=== PATIENT | female | born 1945 | race Caucasian/White ===

== ENCOUNTER → 2019-05-16 15:09 | Outpatient (BNVA) | payer MEDICARE, MEDICAID, SELFPAY | PROVIDERS: Family Provider Nurse Practitioner; PCP Nurse Practitioner; Visit Provider Nurse Practitioner | DX: E03.8 Other specified hypothyroidism (principal) | CPT/HCPCS: 80053; 84443 ==

== ENCOUNTER → 2019-09-17 14:35 | Outpatient (BNVA) | payer MEDICARE, MEDICAID, SELFPAY | PROVIDERS: Family Provider Nurse Practitioner; PCP Nurse Practitioner; Visit Provider Nurse Practitioner | DX: I10 Essential (primary) hypertension (principal); E55.9 Vitamin D deficiency, unspecified; F41.9 Anxiety disorder, unspecified; E03.8 Other specified hypothyroidism; J43.9 Emphysema, unspecified; N39.0 Urinary tract infection, site not specified; M79.10 Myalgia, unspecified site; E61.1 Iron deficiency; E78.5 Hyperlipidemia, unspecified | CPT/HCPCS: 80053; 80061; 81000; 83540; 84443 ==

== ENCOUNTER → 2019-10-01 14:42 | Outpatient (BNVA) | payer MEDICARE, MEDICAID, SELFPAY | PROVIDERS: Family Provider Nurse Practitioner; PCP Nurse Practitioner; Visit Provider Nurse Practitioner | DX: I10 Essential (primary) hypertension (principal) | CPT/HCPCS: 80053; 81000; 81003; 87077; 87086; 87186 ==

== ENCOUNTER → 2019-12-31 14:33 | Outpatient (BNVA) | payer MEDICARE, MEDICAID, SELFPAY | PROVIDERS: Family Provider Nurse Practitioner; PCP Nurse Practitioner; Visit Provider Nurse Practitioner | DX: M54.9 Dorsalgia, unspecified (principal); E03.8 Other specified hypothyroidism; M25.559 Pain in unspecified hip; I10 Essential (primary) hypertension; M79.10 Myalgia, unspecified site; E55.9 Vitamin D deficiency, unspecified; F41.9 Anxiety disorder, unspecified; J43.9 Emphysema, unspecified; R39.9 Unspecified symptoms and signs involving the genitourinary system | CPT/HCPCS: 80053; 81003; 84443; 87077; 87086; 87184; 87186 ==

== ENCOUNTER → 2020-01-01 14:50 | Outpatient (BNVA) | payer MEDICARE, MEDICAID, SELFPAY | PROVIDERS: Family Provider Nurse Practitioner; PCP Nurse Practitioner; Visit Provider Nurse Practitioner | DX: M54.9 Dorsalgia, unspecified (principal); M25.559 Pain in unspecified hip | CPT/HCPCS: 72040; 72072; 72100; 73522 ==

== ENCOUNTER → 2020-03-25 15:09 | Outpatient (BNVA) | payer MEDICARE, MEDICAID, SELFPAY | PROVIDERS: Family Provider Nurse Practitioner; PCP Nurse Practitioner; Visit Provider Family Medicine | DX: I10 Essential (primary) hypertension (principal); E03.8 Other specified hypothyroidism; E78.5 Hyperlipidemia, unspecified; M79.10 Myalgia, unspecified site; J43.9 Emphysema, unspecified; F41.9 Anxiety disorder, unspecified; F32.9 Major depressive disorder, single episode, unspecified; Z72.0 Tobacco use | CPT/HCPCS: 80053; 80061; 84443; 85025 ==

== ENCOUNTER 2020-05-26 10:38 | Outpatient (CLI) | payer MEDICARE, MEDICAID, SELFPAY ==
--- NOTE | 2020-05-26 11:00 | CT_ITS ---
WS: [id number] CT LUMBAR SPINE TECHNIQUE: Noncontrast CT of the lumbar spine with coronal and sagittal reformatted images. CLINICAL INFORMATION: sciatica DLP: 1810.[address] scans at [facility] use at least one of these dose optimization techniques: automat ed exposure control; mA and/or kV adjustment per patient size (includes targeted exams where dose is matched to clinical indication); or iterative reconstruction. FINDINGS: Lumbar scoliosis convex left. Grade 1 anterolisthesis L4 on L5 measuring 5 mm. Grade 1 anterolisthesi s L5 on S1 measuring 6 mm. Disc space narrowing worse at T12-L1, L1-L2, L2-L3, L3-L4, and L5-S1. L1-L2: Disc osteophyte complex with endplate ridging. Impingement on the subarticular recess bilatera lly and traversing L2 nerve roots. Moderate facet arthropathy. Mild right and no significant left for aminal narrowing. L2-L3: Disc osteophyte complex with endplate ridging. Mild central canal stenosis. Impingement wing sing L3 nerve roots bilaterally. Moderate facet arthropathy. Mild right and no significant left myriam inal narrowing. L3-L4: Disc osteophyte complex with endplate ridging. Moderate central canal stenosis. Moderate facet arthropathy. Mild right and no significant left foraminal narrowing. L4-L5: Grade 1 anterolisthesis L4 on L5. Severe central canal stenosis due to disc bulging with facet arthropathy ligament flavum hypertrophy. Impingement traversing L5 nerve roots bilaterally. Advanced facet arthropathy. Mild bilateral foraminal narrowing right greater than left. L5-S1: Mild disc bulging and osteophytic ridging. Advanced facet arthropathy. Moderate left foraminal narrowing. Advanced facet arthropathy. Visualized pelvic bony structures: Normal. Paravertebral soft tissues: Normal. CT/CT lumbar spine wo con* [id number] IMPRESSION: 1. Lumbar scoliosis convex left. 2. Grade 1 anterolisthesis L4 on L5 and L5 on S1. Vacuum disc phenomenon throu ghout the lumbar spine described above. 3. Severe central canal stenosis L4-5. 4. Mild to moderate central canal stenosis L2-3, L3-4, and L5-S1. 5. Mild to moderate bony foraminal narrowing worse at right L1-2, right L2-3, and left L5-S1. 6. Advanced facet arthropathy L4-L5 and L5-S1.
== END 2020-05-26 10:39 | disposition home or self-care (01) ==
LOC: RADWPI 10:45
PROVIDERS: PCP Family Medicine; Visit Provider Family Medicine
DX: M54.40 Lumbago with sciatica, unspecified side (principal); M47.816 Spondylosis without myelopathy or radiculopathy, lumbar region; M47.817 Spondylosis without myelopathy or radiculopathy, lumbosacral region; M48.061 Spinal stenosis, lumbar region without neurogenic claudication; M48.07 Spinal stenosis, lumbosacral region
CPT/HCPCS: 72131

== ENCOUNTER → 2020-07-07 15:03 | Outpatient (BNVA) | payer MEDICARE, MEDICAID, SELFPAY | PROVIDERS: PCP Family Medicine; Visit Provider Orthopaedic Surgery | DX: M54.5 Low back pain (principal) | CPT/HCPCS: 72110 ==

== ENCOUNTER → 2020-07-13 15:39 | Outpatient (BNVA) | payer MEDICARE, MEDICAID, SELFPAY | PROVIDERS: PCP Family Medicine; Visit Provider Family Medicine | DX: E03.8 Other specified hypothyroidism (principal); E55.9 Vitamin D deficiency, unspecified; E78.5 Hyperlipidemia, unspecified; I10 Essential (primary) hypertension; E61.1 Iron deficiency; F41.9 Anxiety disorder, unspecified; F32.9 Major depressive disorder, single episode, unspecified; Z68.30 Body mass index [BMI] 30.0-30.9, adult | CPT/HCPCS: 80053; 80061; 82306; 83540; 84443; 85025 ==

== ENCOUNTER 2020-07-28 08:57 | Outpatient (CLI) | payer MEDICARE, MEDICAID, SELFPAY ==
--- NOTE | 2020-07-28 09:18 | CT_ITS ---
WS: [id number] Exam: CT lumbar spine w con [id number] Date/Time of Exam: 07/28/2020 10:35 AM Reason For Exam: M54.5 - Low back pain DLP: 1841.[address] scans at [facility] use at least one of these dose optimization techniques: automat ed exposure control; mA and/or kV adjustment per patient size (includes targeted exams where dose is matched to clinical indication); or iterative reconstruction. The spine is evaluated in the axial plane with sagittal and coronal reformatted images. Intrathecal c ontrast was administered for the exam. The spinal canal is developmentally large. There is moderately severe central spinal canal stenosis a t the L4-5 disc level. Stenosis is secondary to marked facet hypertrophy and ligamentous thickening. There is also moderate spinal canal stenosis at the L2-3 and L3-4 disc levels. There is mild central spinal canal stenosis at the L1-2 disc level. The L5-S1 disc level is widely patent. No foraminal jayda nosis is seen. No intradural or intramedullary abnormalities were demonstrated. Advanced degenerative disc changes at all levels except L4-5. Grade 1 degenerative anterolisthesis of L5 on S1. Mild degen erative anterolisthesis of L4 on L5. Marked facet arthropathy at all levels. The conus ends at normal level. Paraspinal and retroperitoneal soft tissue structures are unremarkable. Probable small cyst i n the left kidney. CT/CT lumbar spine w con [id number] IMPRESSION: 1. Moderately severe central spinal canal stenosis at L4-5. 2. Moderate spinal canal stenosis at L2-3 and L3-4. Mild canal stenosis at L1-2 . 3. Grade 1 degenerative spondylolisthesis of L5 on S1. Mild L4-5 spondylolisthe sis. 4. Advanced degenerative changes and scoliosis. Additional findings as above.
--- NOTE | 2020-07-28 09:18 | IR_ITS ---
WS: [id number] Exam: IR myelogram sp lumbar [id number] Date/Time of Exam: 07/28/2020 9:20 AM Reason For Exam: M43.16 - Spondylolisthesis, lumbar region Fluoroscopy time: 6.0 minutes The procedure and potential complications were explained to the patient in detail. Written consent wa s obtained. The low back was prepped and draped in a sterile fashion. The soft tissues were anestheti zed with several cc of 1% Xylocaine. A 22-gauge spinal needle was positioned in the subarachnoid spac e at the L4-5 disc level under fluoroscopic guidance. 20 cc of 240% Omnipaque were injected into the subarachnoid space under fluoroscopic visualization. The patient tolerated the injection procedure wi thout incident. There is levoscoliosis of the lumbar spine with moderately advanced degenerative change. There is gra de 1 degenerative spondylolisthesis of L5 on S1 with significant degeneration of the L5-S1 disc. Ther e is central spinal canal stenosis at the L1-2, L2-3 and L3-4 disc levels. There is significant spina l canal stenosis at the L4-5 disc level. There appears to be compression upon the right and left nerv e roots at the L4-5 disc level. No intramedullary or intradural filling defects were demonstrated. Mi ld degenerative anterolisthesis of L4 on L5. IR/IR myelogram sp lumbar [id number] IMPRESSION: 1. Central spinal canal stenosis at L1-2, L2-3, L3-4 and most marked at L4-5. 2. Grade 1 spondylolisthesis of L5 on S1 as noted above. Mild degenerative ante rolisthesis of L4 on L5. 3. Advanced degenerative changes and levoscoliosis. Marked facet arthropathy.
[2020-07-28] MEDS: iohexol 240 mg/mL 50 mL Btl INTRATHECA (10:26)
== END 2020-07-28 08:58 | disposition home or self-care (01) ==
LOC: RADWPI 09:04
PROVIDERS: PCP Family Medicine; Visit Provider Orthopaedic Surgery
DX: M43.16 Spondylolisthesis, lumbar region (principal); M48.061 Spinal stenosis, lumbar region without neurogenic claudication; M43.17 Spondylolisthesis, lumbosacral region; M47.816 Spondylosis without myelopathy or radiculopathy, lumbar region
CPT/HCPCS: 62304; 72120; 72132; Q9966

== ENCOUNTER → 2020-08-05 08:55 | Outpatient (BNVA) | payer MEDICARE, MEDICAID, SELFPAY | PROVIDERS: PCP Family Medicine; Referring Provider Orthopaedic Surgery; Visit Provider Anesthesiology Pain Medicine | DX: G89.29 Other chronic pain (principal); M54.40 Lumbago with sciatica, unspecified side; M43.16 Spondylolisthesis, lumbar region; M51.36 Other intervertebral disc degeneration, lumbar region; M48.062 Spinal stenosis, lumbar region with neurogenic claudication; F17.210 Nicotine dependence, cigarettes, uncomplicated | CPT/HCPCS: 99205 ==

== ENCOUNTER → 2020-08-12 14:10 | Outpatient (BNVA) | payer MEDICARE, MEDICAID, SELFPAY | PROVIDERS: PCP Family Medicine; Visit Provider Anesthesiology Pain Medicine | DX: M54.16 Radiculopathy, lumbar region (principal); M48.062 Spinal stenosis, lumbar region with neurogenic claudication; F17.210 Nicotine dependence, cigarettes, uncomplicated | CPT/HCPCS: 64483; 64484; J1100; J3490 ==

== ENCOUNTER → 2020-09-01 14:12 | Outpatient (BNVA) | payer MEDICARE, MEDICAID, SELFPAY | PROVIDERS: PCP Family Medicine; Visit Provider Anesthesiology Pain Medicine | DX: M54.16 Radiculopathy, lumbar region (principal); M48.062 Spinal stenosis, lumbar region with neurogenic claudication; F17.210 Nicotine dependence, cigarettes, uncomplicated | CPT/HCPCS: 64483; 64484; J1100; J3490 ==

== ENCOUNTER → 2020-09-17 13:24 | Outpatient (BNVA) | payer MEDICARE, MEDICAID, SELFPAY | PROVIDERS: PCP Family Medicine; Visit Provider Anesthesiology Pain Medicine | DX: G89.29 Other chronic pain (principal); M48.062 Spinal stenosis, lumbar region with neurogenic claudication; M54.41 Lumbago with sciatica, right side; M54.42 Lumbago with sciatica, left side; M43.16 Spondylolisthesis, lumbar region; M51.36 Other intervertebral disc degeneration, lumbar region; F17.210 Nicotine dependence, cigarettes, uncomplicated | CPT/HCPCS: 99214 ==

== ENCOUNTER → 2020-09-28 13:45 | Outpatient (BNVA) | payer MEDICARE, MEDICAID, SELFPAY | PROVIDERS: PCP Family Medicine; Visit Provider Anesthesiology Pain Medicine | DX: M47.816 Spondylosis without myelopathy or radiculopathy, lumbar region (principal); M48.062 Spinal stenosis, lumbar region with neurogenic claudication; F17.210 Nicotine dependence, cigarettes, uncomplicated | CPT/HCPCS: 64493; 64494; 64495; J3490 ==

== ENCOUNTER → 2020-10-12 09:21 | Outpatient (BNVA) | payer MEDICARE, MEDICAID, SELFPAY | PROVIDERS: PCP Family Medicine; Visit Provider Anesthesiology Pain Medicine | DX: G89.29 Other chronic pain (principal); M54.41 Lumbago with sciatica, right side; M54.42 Lumbago with sciatica, left side; M48.062 Spinal stenosis, lumbar region with neurogenic claudication; M43.16 Spondylolisthesis, lumbar region; M51.36 Other intervertebral disc degeneration, lumbar region; F17.210 Nicotine dependence, cigarettes, uncomplicated | CPT/HCPCS: 99214 ==

== ENCOUNTER → 2020-10-22 13:56 | Outpatient (BNVA) | payer MEDICARE, MEDICAID, SELFPAY | PROVIDERS: PCP Family Medicine; Visit Provider Anesthesiology Pain Medicine | DX: M47.816 Spondylosis without myelopathy or radiculopathy, lumbar region (principal); M48.062 Spinal stenosis, lumbar region with neurogenic claudication; M54.9 Dorsalgia, unspecified; F17.210 Nicotine dependence, cigarettes, uncomplicated | CPT/HCPCS: 64635; 64636; J1030 ==

== ENCOUNTER → 2020-11-04 13:05 | Outpatient (BNVA) | payer MEDICARE, MEDICAID, SELFPAY | PROVIDERS: PCP Family Medicine; Visit Provider Anesthesiology Pain Medicine | DX: M47.816 Spondylosis without myelopathy or radiculopathy, lumbar region (principal); M48.062 Spinal stenosis, lumbar region with neurogenic claudication; F17.210 Nicotine dependence, cigarettes, uncomplicated | CPT/HCPCS: 64635; 64636; J1030 ==

== ENCOUNTER → 2020-11-20 09:08 | Outpatient (BNVA) | payer MEDICARE, MEDICAID, SELFPAY | PROVIDERS: PCP Family Medicine; Visit Provider Anesthesiology Pain Medicine | DX: G89.29 Other chronic pain (principal); M54.41 Lumbago with sciatica, right side; M54.42 Lumbago with sciatica, left side; M48.062 Spinal stenosis, lumbar region with neurogenic claudication; M43.16 Spondylolisthesis, lumbar region; M51.36 Other intervertebral disc degeneration, lumbar region; M25.552 Pain in left hip; M79.605 Pain in left leg; M79.604 Pain in right leg; F17.210 Nicotine dependence, cigarettes, uncomplicated | CPT/HCPCS: 99213 ==

== ENCOUNTER → 2021-02-16 14:10 | Outpatient (BNVA) | payer MEDICARE, MEDICAID, SELFPAY | PROVIDERS: PCP Family Medicine; Visit Provider Nurse Practitioner | DX: B96.20 Unspecified Escherichia coli [E. coli] as the cause of diseases classified elsewhere (principal); N39.0 Urinary tract infection, site not specified; R82.90 Unspecified abnormal findings in urine; I10 Essential (primary) hypertension; E03.8 Other specified hypothyroidism; E61.1 Iron deficiency; E55.9 Vitamin D deficiency, unspecified; J43.9 Emphysema, unspecified; M48.062 Spinal stenosis, lumbar region with neurogenic claudication; E78.5 Hyperlipidemia, unspecified; Z23 Encounter for immunization; H61.91 Disorder of right external ear, unspecified | CPT/HCPCS: 80048; 80053; 80061; 81000; 82607; 83540; 84443; 85025; 87077; 87086; 87184 ==

== ENCOUNTER → 2021-05-11 14:35 | Outpatient (BNVA) | payer MEDICARE, MEDICAID, SELFPAY | PROVIDERS: PCP Family Medicine; Visit Provider Nurse Practitioner | DX: E03.8 Other specified hypothyroidism (principal) | CPT/HCPCS: 80053; 85025 ==

== ENCOUNTER → 2021-08-03 15:17 | Outpatient (BNVA) | payer MEDICARE, MEDICAID, SELFPAY | PROVIDERS: PCP Family Medicine; Visit Provider Nurse Practitioner | DX: J43.9 Emphysema, unspecified (principal); I10 Essential (primary) hypertension; M48.062 Spinal stenosis, lumbar region with neurogenic claudication; E55.9 Vitamin D deficiency, unspecified; E03.8 Other specified hypothyroidism; E78.5 Hyperlipidemia, unspecified; M54.40 Lumbago with sciatica, unspecified side; G89.29 Other chronic pain; E61.1 Iron deficiency; M25.552 Pain in left hip | CPT/HCPCS: 73502; 80053; 80061; 83540; 84443; 85025 ==

== ENCOUNTER → 2021-11-24 13:33 | Outpatient (BNVA) | payer MEDICARE, MEDICAID, SELFPAY | PROVIDERS: PCP Family Medicine; Referring Provider Nurse Practitioner; Visit Provider Orthopaedic Surgery | DX: M16.12 Unilateral primary osteoarthritis, left hip (principal) | CPT/HCPCS: 99214 ==

== ENCOUNTER → 2021-12-10 10:59 | Outpatient (BNVA) | payer MEDICARE, MEDICAID, SELFPAY | PROVIDERS: PCP Family Medicine; Visit Provider Internal Medicine | DX: Z53.9 Procedure and treatment not carried out, unspecified reason (principal) ==

== ENCOUNTER → 2021-12-10 11:06 | Outpatient (BNVA) | payer MEDICARE, MEDICAID, SELFPAY | PROVIDERS: PCP Family Medicine; Visit Provider Internal Medicine Cardiovascular Disease | DX: I10 Essential (primary) hypertension (principal); M16.12 Unilateral primary osteoarthritis, left hip; I44.1 Atrioventricular block, second degree; Z95.0 Presence of cardiac pacemaker; E78.5 Hyperlipidemia, unspecified; J43.9 Emphysema, unspecified; F17.210 Nicotine dependence, cigarettes, uncomplicated | CPT/HCPCS: 93280; 99213 ==

== ENCOUNTER → 2021-12-14 12:05 | Day surgery (SDC) | payer MEDICARE, MEDICAID, SELFPAY | PROVIDERS: PCP Family Medicine; Visit Provider Orthopaedic Surgery | DX: Z01.818 Encounter for other preprocedural examination (principal) | CPT/HCPCS: 93005 ==

== ENCOUNTER 2021-12-14 12:38 | Outpatient (CLI) | payer MEDICARE, MEDICAID, SELFPAY ==
--- NOTE | 2021-12-14 12:45 | USCV_ITS ---
Sobia Mercer Age: 76 Gender: F : 1945 Exam Date: 12/14/2021 13:20 Ordering Phys: Talib Dahl Technologist: JORDY [place] [facility] [place]ication: PVD Risk Factors: Previous Vascular Surgery: RIGHT LEFT BP: 109.0 / 72.00 BP: 107.0/ 57.00 0 0 Waveform Velocity (cm/s) Velocity (cm/s) Waveform Triphasic 186.2 Iliac Prox Triphasic 195.8 Iliac Mid Triphasic 108.6 Iliac Distal Triphasic 105.2 SOCIAL WORK PROFESSOR Triphasic 120.3 SFA Prox Triphasic 109.9 SFA Mid Triphasic 111.2 SFA Dist Biphasic 119.6 POP Biphasic 43.0 STITCHER HAND Biphasic 41.9 DPA 1.2 MONTRELL FINDINGS RT DPA 134 RT STITCHER HAND 132 Resting MONTRELL of 1.2 on the right side. Minimal plaques in the iliac and the femoral arteries on the right side CONCLUSIONS 1. Mild diffuse plaque in the right iliac and femoral arteries. 2. Normal resting MONTRELL of 1.2 , suggesting no significant arterial obstruction on the right side. Dr Jennifer Bowles MD [facility] (Electronically Signed) Final Date: 15 December 2021 21:16 S
== END 2021-12-14 12:39 | disposition home or self-care (01) ==
PROVIDERS: PCP Nurse Practitioner; Visit Provider Nurse Practitioner
DX: I73.9 Peripheral vascular disease, unspecified (principal)
CPT/HCPCS: 93926

== ENCOUNTER 2021-12-27 05:56 | Day surgery (SDC) | payer MEDICARE, MEDICAID, SELFPAY ==
[2021-12-14 11:14] VITALS: BMI 26.5
--- NOTE | 2021-12-14 12:05 | ECG_ITS ---
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 Measurements Intervals [place] Rate: 69 P: 180 IA: 174 QRS: -58 QRSD: 158 T: 107 QT: 449 QTc: 484 Interpretive Statements ELECTRONIC ATRIAL PACEMAKER ELECTRONIC VENTRICULAR PACEMAKER Compared to ECG 07/21/2016 09:04:14 No significant changes Electronically Signed On 12-14-2021 19:01:13 CDT by Amadeo Pillai M.D. [id number]
--- NOTE | 2021-12-14 15:36 | P.ANESASSM_ITS ---
Pre-Anesthetic Assessment Height/Weight: Height 1.6 m Weight 68.039 kg Preop Diagnosis: OA Operation Date: 12/27/21 07:00 Proposed Procedures p Total Hip Arthroplasty 78933,M16.22(Left) - Ike Santos MD Familial anesthetic complications: Patient initially denied complications associated with anesthesia, on asking about hx of GERD patient said her GERD is poorly controlled I have even aspirated with surgeries Was Beta Vivi taken within 24 hours: N/A Was Clonidine taken within 24 hours: N/A Social Tobacco and No alcohol Exam alert, oriented x 3, clear to auscultation bilaterally and regular rate & rhythm Airway Submandibular: within normal limits Cervical ROM: within normal limits Mallampati: Class II Dentition: false Pulmonary Chronic Obstructive Pulmonary Disease Denies SUSU CV/HEM Arrythmia (Pacemaker in place, 2nd degree heart block ) and Hypertension Denies hx of AR, CAD [employer] Advisa DDR Hx of hypokalemia Hepatic None reported GI Gastroesophageal Reflux Disease (Poorly controlled GERD ) Metabolic Hyperlipidemia and Thyroid Disease Denies DM Musc/skel Lower Back Pain and Osteoarthritis/DJD Neuropsych Anxiety and Depression Anesthetic Plan ASA status: 3 Anesthesia: Anesthesia Evaluation and General Other: Patient did not want spinal anesthesia at outset of anesthetic discussion. Nevertheless we discussed options. We discussed risk and benefits of general vs spinal anesthesia including DVT risk, infection, paralysis/catastrophic nerve injury, back bruising/pain, PDPH, conversion to general in case of spinal, PONV, sore throat (sometimes severe), corneal abrasion, positioning and peripheral nerve injuries, life threatening allergic reaction, post operative ICU admission requiring prolonged intubation, stroke, heart attack, , post operative delirium and/or post operative cognitive decline, and rare incidences of recall (under general anesthesia). Patient prefers general anesthesia Plan GETA, RSI with OG decompression of stomach, awake extubation. Risk of > 500 ml blood loss (7ml/kg in children): No Medications/Allergies Home Medications Medication Instructions Recorded Confirmed Last Taken Type multivitamin [Daily Multi-Vitamin] PO DAILY 05/13/19 12/10/21 Unknown History albuterol sulfate 2.5 mg inhalation Q6H 07/13/20 12/14/21 Unknown History acetaminophen 500 mg tablet 500 mg PO Q6H PRN Pain 08/12/20 12/14/21 Unknown History (Tylenol Extra Strength) naproxen 500 mg tablet 500 mg PO .4-5 tabs day PRN Pain 08/12/20 12/14/21 Unknown History albuterol sulfate 90 mcg/actuation 2 inh inhalation Q4H PRN shortness 11/15/21 12/14/21 Unknown Rx aerosol inhaler (Ventolin HFA) of breath or wheezing #18 grams chlorthalidone 25 mg tablet 25 mg PO DAILY #30 tabs 11/15/21 12/14/21 Unknown Rx duloxetine 60 mg capsule,delayed 60 mg PO BID #60 caps 11/15/21 12/14/21 Unknown Rx release ergocalciferol (vitamin D2) 1,250 50,000 unit PO .weekly #4 caps 11/15/21 12/14/21 Unknown Rx mcg (50,000 unit) capsule gabapentin 800 mg tablet 800 mg PO BID #60 tabs 11/15/21 12/14/21 Unknown Rx levothyroxine 88 mcg tablet 88 mcg PO .6 days week #30 tabs 11/15/21 12/14/21 Unknown Rx potassium chloride 10 mEq 10 meq PO DAILY #30 caps 11/15/21 12/14/21 Unknown Rx capsule,extended release rosuvastatin 40 mg tablet 40 mg PO DAILY #30 tabs 11/15/21 12/14/21 Unknown Rx tramadol 50 mg tablet 50 mg PO BID PRN pain #60 tabs 11/15/21 12/14/21 Unknown Rx umeclidinium 62.5 mcg/actuation 1 inh inhalation Q24H #30 ea 11/15/21 12/14/21 Unknown Rx blister powder for inhalation (Incruse Ellipta) Allergies Allergy/AdvReac Type Severity Reaction Status Date / Time No Known Allergies Allergy Verified 12/14/21 11:11 [facility] Anesthesia Medical History Adult onset hypothyroidism Anxiety and depression Dyslipidemia Enrolled in chronic care management Essential hypertension Heart block AV second degree History of pacemaker Pacemaker Tobacco abuse Vitamin D deficiency Surgical History History of cholecystectomy History of colonoscopy History of gastric bypass History of laparoscopic appendectomy History of partial surgical removal of colon History of right hip replacement History of thyroidectomy Family History Other Cancer Diabetes Hypertension Social History Smoking and tobacco status: current every day smoker cigarettes Packs smoked per day: 1 [ Other cigarette details: started gummies / process of quitting] Second hand smoke exposure: Yes Smoking risk assessment/counseling performed?: No Alcohol intake: current Alcohol intake frequency: holidays/special occasions only Alcohol type: beer and hard liquor Desire information about alcohol rehabilitation?: No Counseling given: No Desire information about substance/drug rehabilitation?: No Counseling given: No Adopted: No Caregiver/support person: No Lives independently: Yes Household members: none Housing: House Marital status: Number of children: 2 Current occupational status: retired History of recent travel: No Current gender identity: Female Data Anesthesia Cardiac Studies: No Data to Display
[2021-12-27 06:10] VITALS: BP 138/75; PULSE 84; RESP 16; TEMP 36.6; O2SAT 98
--- NOTE | 2021-12-27 06:49 | PC.NURSE ---
PT arrived for pre op for a total hip replacement of the left hip. pt was brought back to pre op room at 0608 pt changed and this nurse was going over the med list asking when meds were taken pt has a new prescription for xarelto on their list this med was filled on 12/21/21 and the pt had taken 5 days of this medication this Rx apparently was given to the pt in between the time they came in for a in person pre op visit and the day of surgery pt was not informed about the med needing to be stopped prior to procedure leading to the possibility of cancelation
--- NOTE | 2021-12-27 07:07 | PM.PN ---
Subjective Subjective: Ms. Mercer was begun an Xarelto last week and took her last tablet yesterday morning Vitals/I&O/Wt Last Vital Signs Temp 98 F 12/27/21 06:10 Pulse 84 12/27/21 06:10 Resp 16 12/27/21 06:10 BP 138/75 12/27/21 06:10 Pulse Ox 98 12/27/21 06:10 O2 Del Method 12/27/21 06:10 A&P Assessment and plan (1) Osteoarthritis of left hip: Xarelto use will place patient at increased risk of bleeding complications including hematoma formation and infection. Will need to postpostpone surgery until patient can be off of Xarelto 48hrs. Status: Acute Attestations Medical Necessity Statement*: Surgery cancelled Coding Level of Care Code Acute Research Professor Of Biostatistics for Melissa Granda Diagnoses Osteoarthritis of left hip M16.12
== END 2021-12-27 07:06 | disposition home or self-care (01) ==
LOC: OR 05:57
PROVIDERS: PCP Family Medicine; Visit Provider Orthopaedic Surgery
PROC: (CPT 27130; principal; 2021-12-27 07:00)
DX: M16.12 Unilateral primary osteoarthritis, left hip (principal); Z53.8 Procedure and treatment not carried out for other reasons; J44.9 Chronic obstructive pulmonary disease, unspecified; Z95.0 Presence of cardiac pacemaker; I10 Essential (primary) hypertension; E78.5 Hyperlipidemia, unspecified; F17.210 Nicotine dependence, cigarettes, uncomplicated

== ENCOUNTER 2022-02-14 16:07 | Observation (INO) | payer MEDICARE, MEDICAID, SELFPAY ==
[2022-01-31 10:55] VITALS: BMI 28.3
[2022-01-31 11:20] LABS: Basophils # 0.1 10^3/uL (0.0-0.1); Eosinophils # 0.2 10^3/uL (0.0-0.8); Eosinophils % 2.9 %; Hematocrit 30.1 % (37.0-47.0); Hemoglobin 8.9 g/dL (11.5-15.3); Lymphocytes # 1.1 10^3/uL (0.8-4.8); Lymphocytes % 15.9 %; Mean Corpuscular HGB Conc 29.6 g/dL (30.0-36.0); Mean Corpuscular Hemoglobin 25.8 pg (28.0-34.0); Mean Corpuscular Volume 87.2 fl (81-99); Mean Platelet Volume 10.5 fL (7.4-10.4); Monocytes # 0.6 10^3/uL (0.2-0.9); Monocytes % 7.9 %; Neutrophils # 5.12 10^3/uL (1.8-7.7); Neutrophils % 71.9 %; Nucleated Red Blood Cells % 0 %; Platelet Count 266 10^3/cmm (130-400); Red Blood Count 3.45 10^6/uL (4.1-5.3); Red Cell Distribution Width 16.2 % (12.1-15.1); White Blood Count 7.1 10^3/uL (4.0-10.0)
[2022-01-31 11:46] LABS: Anion Gap 15.8 (5-19); Blood Urea Nitrogen 20 mg/dL (8-23); Calcium 8.8 mg/dL (8.5-10.5); Carbon Dioxide 29 mmol/L (22-29); Chloride 101 mmol/L (98-107); Creatinine Clr Calc Pharmacy 57.1106; Glucose 94 mg/dL (65-115); Osmolality Calculated 296 mOsm/kg (285-295); Potassium 3.8 mmol/L (3.5-5.1); Sodium 142 mmol/L (136-145)
--- NOTE | 2022-01-31 15:20 | ANES.PREANE2 ---
Pre-Anesthetic Assessment Height/Weight: Height 1.6 m Weight 72.575 kg Preop Diagnosis: Osteoarthritis left Operation Date: 02/14/22 09:55 Proposed Procedures p Left total hip arthroplasty: 64054,M16.12(Left) - Ike Santos MD Familial anesthetic complications: none Was Beta Vivi taken within 24 hours: N/A Was Clonidine taken within 24 hours: N/A Social Tobacco and No alcohol Exam alert, oriented x 3 and regular rate & rhythm Airway Submandibular: within normal limits Cervical ROM: within normal limits Mallampati: Class II Pulmonary Chronic Obstructive Pulmonary Disease CV/HEM Anemia, Arrythmia, Hypertension and Peripheral Vascular Disease pacemaker Metabolic Hyperlipidemia and Thyroid Disease Musc/[facility] Lower Back Pain and Osteoarthritis/DJD Neuropsych Anxiety and Depression Anesthetic Plan ASA status: 3 Anesthesia: Regional (specify below) (SAB) Medications/Allergies Home Medications Medication Instructions Recorded Confirmed Last Taken Type multivitamin [Daily Multi-Vitamin] 1 tab PO DAILY 05/13/19 01/31/22 12/26/21 History albuterol sulfate 2.5 mg/3 mL 2.5 mg inhalation Q6H 07/13/20 01/31/22 12/25/21 History (0.083 %) solution for nebulization acetaminophen 500 mg tablet 500 mg PO Q6H PRN Pain 08/12/20 01/31/22 12/24/21 History (Tylenol Extra Strength) naproxen 500 mg tablet 500 mg PO .4-5 tabs day PRN Pain 08/12/20 01/31/22 12/25/21 History albuterol sulfate 90 mcg/actuation 2 inh inhalation Q4H PRN shortness 11/15/21 01/31/22 12/26/21 Rx aerosol inhaler (Ventolin HFA) of breath or wheezing #18 grams chlorthalidone 25 mg tablet 25 mg PO DAILY #30 tabs 11/15/21 01/31/22 12/26/21 Rx duloxetine 60 mg capsule,delayed 60 mg PO BID #60 caps 11/15/21 01/31/22 12/26/21 Rx release ergocalciferol (vitamin D2) 1,250 50,000 unit PO .weekly #4 caps 11/15/21 01/31/22 12/20/21 Rx mcg (50,000 unit) capsule gabapentin 800 mg tablet 800 mg PO BID #60 tabs 11/15/21 01/31/22 12/25/21 Rx levothyroxine 88 mcg tablet 88 mcg PO .6 days week #30 tabs 11/15/21 01/31/22 12/26/21 Rx potassium chloride 10 mEq 10 meq PO DAILY #30 caps 11/15/21 01/31/22 12/26/21 Rx capsule,extended release rosuvastatin 40 mg tablet 40 mg PO DAILY #30 tabs 11/15/21 01/31/22 12/26/21 Rx tramadol 50 mg tablet 50 mg PO BID PRN pain #60 tabs 11/15/21 01/31/22 12/26/21 Rx umeclidinium 62.5 mcg/actuation 1 inh inhalation Q24H #30 ea 11/15/21 01/31/22 12/27/21 Rx blister powder for inhalation (Incruse Ellipta) rivaroxaban 2.5 mg tablet (Xarelto) 2.5 mg PO BID #60 tabs 12/21/21 01/31/22 12/26/21 Rx Allergies Allergy/AdvReac Type Severity Reaction Status Date / Time No Known Allergies Allergy Verified 12/14/21 11:11 [facility] Anesthesia Medical History Adult onset hypothyroidism Anxiety and depression Dyslipidemia Enrolled in chronic care management Essential hypertension Heart block AV second degree History of pacemaker Pacemaker Tobacco abuse Vitamin D deficiency Surgical History History of cholecystectomy History of colonoscopy History of gastric bypass History of laparoscopic appendectomy History of partial surgical removal of colon History of right hip replacement History of thyroidectomy Family History Other Cancer Diabetes Hypertension Social History Smoking and tobacco status: current every day smoker cigarettes Packs smoked per day: 1 [ Other cigarette details: started gummies / process of quitting] Second hand smoke exposure: Yes Smoking risk assessment/counseling performed?: No Alcohol intake: current Alcohol intake frequency: holidays/special occasions only Alcohol type: beer and hard liquor Desire information about alcohol rehabilitation?: No Counseling given: No Desire information about substance/drug rehabilitation?: No Counseling given: No Adopted: No Caregiver/support person: No Lives independently: Yes Household members: none Housing: House Marital status: Number of children: 2 Current occupational status: retired History of recent travel: No Current gender identity: Female Data Anesthesia : 01/31/22 11:12 01/31/22 11:12 Short CBC 01/31/22 Range/Units 11:12 WBC 7.1 (4.0-10.0) 10^3/uL Hgb 8.9 L (11.5-15.3) g/dL Hct 30.1 L (37.0-47.0) % MCV 87.2 (81-99) fl Plt Count 266 (130-400) 10^3/cmm Neut % (Auto) 71.9 % Neut # (Auto) 5.12 (1.8-7.7) 10^3/uL BMP 01/31/22 11:12 Sodium 142 Potassium 3.8 Chloride 101 Carbon Dioxide 29 BUN 20 Creatinine 0.8 Glucose 94 Calcium 8.8 Cardiac Studies: No Data to Display
[2022-02-14] VITALS (18 sets, daily range): BP systolic 88–137; BP diastolic 48–75; PULSE 54–80; RESP 12–19; TEMP 36.3–36.7; O2SAT 91–98; BMI 28.3
[2022-02-14] MEDS: CELEcoxib 200 mg Capsule 400 MG PO (08:38)
[2022-02-14] MEDS: oxyCODONE 20 mg ER (12 HR) Tablet PO (08:39)
[2022-02-14] MEDS: acetaminophen 500 mg Tablet 1000 MG PO ×2 (08:39→17:41)
[2022-02-14] MEDS: sodium chloride 0.9% 1,000 ML 30 ML IV (08:40)
[2022-02-14] MEDS: gabapentin 300 mg Capsule PO (08:40)
--- NOTE | 2022-02-14 08:51 | P.HP_ITS ---
Same Day Surgery H&P Indication for Procedure/HPI DATE OF PROCEDURE: February 14, 2022 CHIEF COMPLAINT/INDICATIONFOR SURGICAL PROCEDURE: Osteoarthritis left hip here for left total hip arthroplasty PREOP DIAGNOSIS: Osteoarthritis left hip PLANNED PROCEDURE: Operation Date: 02/14/22 09:45 Proposed Procedures p Left total hip arthroplasty: 08486,M16.12(Left) - Ike Santos MD 76-year-old female with progressive pain in the left hip and inability to ambulate more than a block. She has failed anti-inflammatories and tramadol. She did well with a previous right total hip arthroplasty. She is here today for elective left total hip arthroplasty. Cardiac clearance has been obtained by Dr. Jake Gandhi MD Medications/Allergies* Home Medications Medication Instructions Recorded Confirmed Type multivitamin [Daily Multi-Vitamin] 1 tab PO DAILY 05/13/19 01/31/22 History albuterol sulfate 2.5 mg/3 mL 2.5 mg inhalation Q6H 07/13/20 02/14/22 History (0.083 %) solution for nebulization acetaminophen 500 mg tablet 500 mg PO Q6H PRN Pain 08/12/20 02/14/22 History (Tylenol Extra Strength) naproxen 500 mg tablet 500 mg PO .4-5 tabs day PRN Pain 08/12/20 01/31/22 History Allergies/Adverse Reactions Allergy/AdvReac Type Severity Reaction Status Date / Time No Known Allergies Allergy Verified 12/14/21 11:11 Current Medications: Generic Name Dose Route Start Last Admin Trade Name Freq PRN Reason Stop Dose Admin Sodium Chloride 1,000 mls @ 30 mls/hr 02/14/22 08:15 02/14/22 08:40 Sodium Chloride 0.9% IV 02/15/22 08:14 30 mls/hr .Q24H EDUARDO Administration Pertinent History/Comorbid Conditions* Medical History (Updated 11/24/21 @ 14:26 by Ike Santos MD) Adult onset hypothyroidism Anxiety and depression Dyslipidemia Enrolled in chronic care management Essential hypertension Heart block AV second degree History of pacemaker Pacemaker Tobacco abuse Vitamin D deficiency Surgical History (Updated 05/16/19 @ 14:52 by RANJIT MarieC) History of cholecystectomy History of colonoscopy History of gastric bypass History of laparoscopic appendectomy History of partial surgical removal of colon History of right hip replacement History of thyroidectomy Family History (Updated 05/13/19 @ 15:23 by KATHLEEN Garza) Diabetes Cancer Hypertension Social History Smoking and tobacco status: current every day smoker cigarettes Packs smoked per day: 1 [ Other cigarette details: started gummies / process of quitting] Second hand smoke exposure: Yes Smoking risk assessment/counseling performed?: No Alcohol intake: current Alcohol intake frequency: holidays/special occasions only Alcohol type: beer and hard liquor Desire information about alcohol rehabilitation?: No Counseling given: No Desire information about substance/drug rehabilitation?: No Counseling given: No Adopted: No Caregiver/support person: No Lives independently: Yes Household members: none Housing: House Marital status: Number of children: 2 Current occupational status: retired History of recent travel: No Current gender identity: Female Pertinent Exam Findings alert, oriented x 3, clear to auscultation bilaterally, regular rate & rhythm and operative site marked Pertinent Data Radiographs of the left hip are reviewed dated 08/03/2021. The patient has severe degenerative changes of the left hip with complete obliteration of the joint space and flattening and lateral subluxation of the left humeral head. Recommendations Surgery/Procedure today Coding Level of Care Code Acute Patient Admitting Representative for Melissa Granda
--- NOTE | 2022-02-14 09:15 | P.ANESUD_ITS ---
Pre-Anesthetic Update Pre-Anesthetic Assessment: Date of Surgery/Procedure: 02/14/22 Preop Agueda gnosis: Osteoarthritis left hip Proposed Procedure: Operation Date: 02/14/22 09:45 Proposed Procedures p Left total hip arthroplasty: 86634,M16.12(Left) - Ike Santos MD Any changes to Pre-Anesthetic Assessment?: Yes Changes from Pre-Anesthetic Assessment: Hgb 9.8 on 01/31 - repeat hgb drawn Last Intake: Intake Last Liquid Date 02/13/22 Last Liquid Time 22:30 Last Solid Date 02/13/22 Last Solid Time 16:00 Vitals: Temperature 97.6 F 02/14/22 08:28 Temperature Source Temporal Artery S can 02/14/22 08:28 Pulse Rate 80 02/14/22 08:28 Pulse Rhythm 02/14/22 08:28 Pulse Strength 3+ Normal 02/14/22 08:28 Respiratory Rate 18 02/14/22 08:28 Blood Pressure 137/74 02/14/22 08:28 Blood Pressure Saumya n 95 02/14/22 08:28 Pulse Oximetry 96 02/14/22 08:28 Oxygen Delivery Me thod 02/14/22 08:28 Exam: Pre-Anes Outpt Exam: alert, oriented x 3, clear to auscultation bilaterally and regular rate & rhythm Cardiac Studies: No Data to Display
[2022-02-14 09:46] LABS: Basophils # 0.1 10^3/uL (0.0-0.1); Basophils % 1.1 %; Eosinophils # 0.1 10^3/uL (0.0-0.8); Eosinophils % 1.2 %; Hematocrit 29.7 % (37.0-47.0); Hemoglobin 8.8 g/dL (11.5-15.3); Lymphocytes # 0.9 10^3/uL (0.8-4.8); Lymphocytes % 14.5 %; Mean Corpuscular HGB Conc 29.6 g/dL (30.0-36.0); Mean Corpuscular Hemoglobin 24.6 pg (28.0-34.0); Mean Platelet Volume 11.1 fL (7.4-10.4); Monocytes # 0.4 10^3/uL (0.2-0.9); Monocytes % 6.6 %; Neutrophils # 4.93 10^3/uL (1.8-7.7); Neutrophils % 76.1 %; Nucleated Red Blood Cells % 0 %; Platelet Count 282 10^3/cmm (130-400); Red Blood Count 3.58 10^6/uL (4.1-5.3); Red Cell Distribution Width 15.3 % (12.1-15.1); White Blood Count 6.5 10^3/uL (4.0-10.0)
[2022-02-14] MEDS: ceFAZolin 2,000 MG in sodium chloride 0.9% (plus) 50 ML 100 MG IV ×2 (10:25→17:41)
[2022-02-14] MEDS: tranexamic acid 1,000 mg/10mL SDV 1000 MG IV (10:55)
--- NOTE | 2022-02-14 12:08 | PM.OP ---
Operative Report Date of procedure: February 14, 2022 Pre-op diagnosis: Preop Diagnosis Osteoarthritis left hip Post-op diagnosis: same Post-op diagnosis: Same Procedure done: Left total hip arthroplasty Implants: 1) Alber 54 mm Trident 2 solid back acetabular shell 2) Size 4 Antelope 127 degree neck angle Accolade 2 stem 3} 28mm -4 standard ceramic femoral head 4} size E MDM metal liner Pathology: none sent Surgeon: Ike Santos Adult Day Care Worker: Calin Sloan Adult Day Care Worker: The nurse practitioner assisted with critical portions of the procedure including positioning, draping, surgical exposure, implantation of components, wound closure, dressing application, and lower extremity immobilizer placed. Anesthesia: Nerve Block (Spinal) Estimated blood loss (mL): 100 Findings: Patient eburnated bone over the femoral head and acetabulum with large superior and posterior osteophytes about the acetabulum and femoral neck Condition: stable Disposition: PACU Procedure: The patient was taken to the operating room and anesthesia provided by the anesthesia service. The patient was placed in the lateral position on a pegboard. A timeout was performed. The patient was draped in the usual fashion. A 15 cm long incision was made beginning just proximal to the greater trochanter and extending posteriorly to a point just distal to the trochanter on the posterior border of the trochanter. Dissection was carried down with electrocautery through the subcutaneous fat to the fascia kaur which was divided proximally and distally with curved scissors. The anterior two thirds of the gluteus medius and minimus were elevated off the hip with electrocautery. The capsule was divided in a H-like fashion. The hip was dislocated and a neck cut made just above the level of the lesser trochanter. Exposure of the acetabulum was facilitated with the acetabular retractors. Remnants of labrum and peripheral osteophytes were removed with electrocautery and a rongeur. A reamer 2 mm under the size the femoral head was utilized to ream medially to the base of the palm and are. Reaming was then increased in 1 mm intervals until a healthy rim a trabecular bone was encountered. The rim was touched with the reamer the size of the final acetabular shell to be placed. A final Trident 2 acetabular cup of the same size as the final reaming was press-fit into place. The ADM liner was secured. Attention was then focused on the femur. The canal was localized with a canal finder. Broaching was then accomplished until a stable broach size was obtained. A trial reduction with the head and neck provided excellent stability. The wound was irrigated with saline and antibiotic solution. The final Antelope Accolade II stem was press-fit into place. The femoral head was placed and the hip was reduced. The hip was brought through range of motion and found to be free of impingement and stable. The anterior capsule was reapproximated with 1 Ethibond. The gluteus medius and minimus were repaired through bone with 5 Ethibond and reinforced with 1 Ethibond. The fascial kaur was closed with a running 0 Stratafix suture. Deep pelvic tissues were closed with 2-0 Stratafix and the skin with a running 4-0 l Stratafix. The skin was covered with a Prineo dressing and op site dressings.
--- NOTE | 2022-02-14 12:24 | XRR_ITS ---
PROCEDURE INFORMATION: Exam: XR Left Hip Exam date and time: 02/14/2022 12:29 PM Age: 76 years old Clinical indication: Device placement; Other: Left total hip arthroplasty; Prior surgery; Surgery date: Post-operative (0-2 days) TECHNIQUE: Imaging protocol: Radiologic exam of the Left hip. Views: 1 view hip with pelvis when performed. COMPARISON: CR XR hip LT 2-3V wo/w pel* [id number] 08/03/2021 3:16 PM FINDINGS: Bones/joints: There is bilateral metallic hip arthroplasty present in good position. No acute fracture. Soft tissues: Unremarkable. XR/XR hip LT 1V wo/w pel [id number] IMPRESSION: 1. Bilateral metallic hip arthroplasty in good position 2. No acute findings.
--- NOTE | 2022-02-14 12:38 | SUR.PHASEI ---
1213 PT TO PACU 5 PT AWAKE ALERT PT WAS SPINAL ANESTHESIA, PT STATES NORMAL SENSATION AT T10 AREA, PT UNABLE TO MOVE THIGHS OR FEET, HOB AT 5 DEGREES, KNEES UP SLIGHTLY, BILAT FOOT PUMPS ON BP 90/55 HR 70'S AND SR WITH NO ECTOPY NOTED. ID BRACELET TO RT WRIST, PT ID'D WITH 2 IDENTIFIERS, IV TO LT FA #20 PATENT TO NS 1000ML AT MOD RATE PER GRAVITY, LT HIP DRESSING D/I WITH FIRST ICE TO SITE. DISTAL LT FOOT WITH PULSE +1 MARKED AND FOOT PUMPS ON AND WORKING. WARM BLANKETS TO PT X 4 , PT ORIENTED X 3 DENIES PAIN AND NAUSEA. 1240 X RAYS DONE, DR MCGOVERN AT BEDSIDE, PT TOLERATED WELL, DRESSING TO LT HIP UNCHANGED.
--- NOTE | 2022-02-14 12:49 | SUR.PHASEI ---
SPINAL LEVEL NOW T12, PT HAS NORMAL SENSATION TO UMBILICAS , STILL UNABLE TO MOVE BILAT FEET.
--- NOTE | 2022-02-14 13:03 | SUR.PHASEI ---
1255 PT AWAKE ALERT SURGICAL WOUND ASSESSMENT UNCHANGED FIRST ICE TO HIP, PT TO OPS 2 FOR HOLDING HANDOFF AT BEDSIDE WITH BERNARD CAROLINA.
--- NOTE | 2022-02-14 13:24 | ANE.PACU2 ---
Inpatient post-anesthesia follow up: Airway intact: Yes Vital signs: Temperature 98.1 F Pulse Rate 61 Respiratory Rate 18 Blood Pressure 120/60 Pulse Oximetry 98 Oxygen Delivery Me thod Room Air Oxygen Flow Rate Fraction of Inspir ed Oxygen Hydration adequate: Yes Nausea and vomiting: No Pain level: 1 Mental status: Baseline
--- NOTE | 2022-02-14 14:43 | SUR.EXTENDED ---
patient can wiggle and move feet and feel sensation in toes and feet bilaterally. patient states she is starting to feel the surgical site. pt eating jello and crackers. patient sister at bedside. patient is on room air with sats ranging 94-96%. awake and alert. bed assignment received, plan to call report to floor nurse and transport patient to floor room .
[2022-02-14] MEDS: oxyCODONE 5 mg IR Tab/Cap PO (15:06)
--- NOTE | 2022-02-14 15:41 | SUR.EXTENDED ---
[facility] report was called to rach CAROLINA. patient awake and alert. patient transferred from [facility] to floor bed. patients dressing dry and intact. wedge pillow in place.
[2022-02-14] MEDS: morphine 4 mg/mL SDV 1 mL 2 MG IVP ×3 (16:47→20:39)
[2022-02-14] MEDS: gabapentin 400 mg Capsule 800 MG PO (17:41)
[2022-02-14] MEDS: duloxetine 60 mg Capsule PO (17:41)
[2022-02-14] MEDS: sodium chloride 0.9% 1,000 ML 75 ML IV (17:54)
[2022-02-14] MEDS: ipratropium 0.5 mg/2.5 mL Neb INHALATION (19:30)
[2022-02-14] MEDS: rivaroxaban 10 mg Tablet 2.5 MG PO (20:38)
[2022-02-14] MEDS: CELEcoxib 200 mg Capsule PO (20:39)
[2022-02-15] VITALS (11 sets, daily range): BP systolic 96–106; BP diastolic 57–68; PULSE 58–87; RESP 16–18; TEMP 36.6–36.7; O2SAT 90–93
[2022-02-15] MEDS: oxyCODONE 5 mg IR Tab/Cap PO ×3 (00:47→14:15)
[2022-02-15 02:59] LABS: Hemoglobin 7.6 g/dL (11.5-15.3)
[2022-02-15] MEDS: ceFAZolin 2,000 MG in sodium chloride 0.9% (plus) 50 ML 100 MG IV ×2 (03:01→10:30)
--- NOTE | 2022-02-15 07:58 | P.PN_ITS ---
Subjective Subjective: Patient awake and alert in bed. Passing urine. Tolerating p.o. pain meds Vitals/I&O/Wt Last Vital Signs Temp 98.1 F 02/15/22 04:00 Pulse 71 02/15/22 04:00 Resp 17 02/15/22 04:00 BP 97/60 02/15/22 04:00 Pulse Ox 90 02/15/22 04:00 O2 Del Method 02/14/22 19:32 02/14/22 02/15/22 02/15/22 22:59 06:59 14:59 Intake Total 220 / 1220 50 / 50 Balance 220 / 1170 50 / 50 Weight last 48 hrs Weight 160 lb Physical Exam 2 Narrative: Left hip dressing clean and dry. Minimal swelling left thigh. Data : 02/15/22 02:00 01/31/22 11:12 A&P Assessment and plan (1) Status post left hip replacement: Left hip appears benign. We will begin to mobilize with therapy today. (2) Chronic anemia: Hemoglobin, as expected, slightly decreased from preop. We will see if patient is symptomatic once more mobile. Attestations Medical Necessity Statement*: Possible discharge today if does well with therapy Coding Level of Care Code Acute Iron Guardrail Installer for Melissa Granda Diagnoses Status post left hip replacement Z96.642 Chronic anemia D64.9
[2022-02-15] MEDS: duloxetine 60 mg Capsule PO (08:36)
[2022-02-15] MEDS: acetaminophen 500 mg Tablet 1000 MG PO (08:36)
[2022-02-15] MEDS: atorvastatin 40 mg Tablet 80 MG PO (08:37)
[2022-02-15] MEDS: gabapentin 400 mg Capsule 800 MG PO (08:37)
[2022-02-15] MEDS: levothyroxine 88 mcg Tablet PO (08:37)
[2022-02-15] MEDS: rivaroxaban 10 mg Tablet 2.5 MG PO (08:37)
[2022-02-15] MEDS: sodium chloride 0.9% 1,000 ML 75 ML IV (08:38)
[2022-02-15] MEDS: potassium chloride ER 10 mEq Tablet PO (08:38)
[2022-02-15] MEDS: CELEcoxib 200 mg Capsule PO (08:38)
[2022-02-15] MEDS: ipratropium 0.5 mg/2.5 mL Neb INHALATION (09:34)
[2022-02-15] MEDS: chlorthalidone 25 mg Tablet PO (09:34)
[2022-02-15] MEDS: TRAMadol 50 mg Tablet PO (09:46)
--- NOTE | 2022-02-15 10:48 | PC.CHAP ---
Pastoral Care Encounter/Spiritual Assessment Type of Contact [] Declined senior cost estimator visit [] Patient/Family/Request visit [] Outpatient visit [] Follow-up visit [] Physician referral [] Code/Alert [x] Routine visit [] Staff referral [] Actively dying [] Patient sleeping [] Family support [] [] Out of room [] Palliative care [] [x] Receiving care in room [] Pre-surgical visit [] Trauma [] Long length of stay [] ICU visit [] Other: Relational/Emotional Strength [] Patient feels connected with others/family/visitors/staff [] Distress [] Loneliness/isolation [] Abandonment Spirituality of Patient [] Person of María [] Attends Temple of their María [] Believes in Prayer [] Reads Bible or Muslim materials [] There are Spiritual issues to be addressed Cannon Pinion Adjuster Interventions [] Prayer [] Active listening [] Non-anxious presence [] Spiritual/emotional support [] Crisis/trauma care [] Spiritual counseling [] Bereavement support [] Provided bereavement packet [] Provided Bible/devotional materials [] Provided toy/stuffed animal, coloring book to patient or family member [] Provided Communion [] Anointing/[place] [] Salvation [] Completed spiritual assessment [] Other: Impact on Illness or Injury [] Angry [] Fearful [] Anxious [] Often cries [] Exhaustion [] Unable to work [] Unable to attend mormonism [] Unable to walk/stand [] Unable to read [] Unable to drive [] Unable to eat/drink [] Unable to sleep [] Unable to be with family [] Patient intubated [] Other: Summary Time spent with patient
--- NOTE | 2022-02-15 15:27 | PM.DCS ---
Discharge Providers Date of Admission: 02/14/22 16:07 Date of Discharge: February 15, 2022 Attending Provider at Admission: Ike Santos MD Attending Provider at Discharge: Ike Santos MD Primary Care Provider: Massiel Rivera MD Diagnoses at Discharge Discharge Diagnosis (1) Status post left hip replacement: Status: Acute (2) Chronic anemia: Details from hospital stay: Patient had decreased to hemoglobin of 8.8 the time of admission with a slight decrease 7.6 the first postoperative day. He remained asymptomatic Status: Acute Hospital Course Hospital Course The patient tolerated surgery well. They remained hemodynamically stable. They was begun on her Xarelto the day after surgery and sequential compression dressing for DVT prophylaxis. The patient was mobilized with therapy beginning the day of surgery and by the first postoperative day independent with the walker. As the pain was adequately controlled and they were fully mobile they were discharged home. Physical Exam Narrative: On the day of discharge the hip incision was clean. The incision was free of drainage. They had no particular swelling about the thigh or distal. No distal neurovascular deficits were noted. Discharge Data Studies Completed and Pending Completed Studies During Hospitalization Category Date Time Status XR hip LT 1V wo/w pel [id number] Routine Exams 02/14/22 12:24 Completed Radiology Impressions Hip X-Ray 02/14/22 12:24 IMPRESSION: 1. Bilateral metallic hip arthroplasty in good position 2. No acute findings. Laboratory Results WBC 6.5 10^3/uL (4.0-10.0) 02/14/22 08:50 WBC Cancelled 02/14/22 08:50 Corrected WBC Cancelled 02/14/22 08:50 RBC 3.58 10^6/uL (4.1-5.3) L 02/14/22 08:50 RBC Cancelled 02/14/22 08:50 Hgb 7.6 g/dL (11.5-15.3) L 02/15/22 02:00 Hct 29.7 % (37.0-47.0) L 02/14/22 08:50 Hct Cancelled 02/14/22 08:50 MCV 83.0 fl (81-99) 02/14/22 08:50 MCV Cancelled 02/14/22 08:50 MCH 24.6 pg (28.0-34.0) L 02/14/22 08:50 MCH Cancelled 02/14/22 08:50 MCHC 29.6 g/dL (30.0-36.0) L 02/14/22 08:50 MCHC Cancelled 02/14/22 08:50 RDW 15.3 % (12.1-15.1) H 02/14/22 08:50 RDW Cancelled 02/14/22 08:50 Plt Count 282 10^3/cmm (130-400) 02/14/22 08:50 Plt Count Cancelled 02/14/22 08:50 MPV 11.1 fL (7.4-10.4) H 02/14/22 08:50 MPV Cancelled 02/14/22 08:50 Neut % (Auto) 76.1 % 02/14/22 08:50 Lymph % (Auto) 14.5 % 02/14/22 08:50 Gallia % (Auto) 6.6 % 02/14/22 08:50 Eos % (Auto) 1.2 % 02/14/22 08:50 Baso % (Auto) 1.1 % 02/14/22 08:50 Neut # (Auto) 4.93 10^3/uL (1.8-7.7) 02/14/22 08:50 Lymph # (Auto) 0.9 10^3/uL (0.8-4.8) 02/14/22 08:50 Gallia # (Auto) 0.4 10^3/uL (0.2-0.9) 02/14/22 08:50 Eos # (Auto) 0.1 10^3/uL (0.0-0.8) 02/14/22 08:50 Baso # (Auto) 0.1 10^3/uL (0.0-0.1) 02/14/22 08:50 Nucleated RBC % (auto) 0 % 02/14/22 08:50 Total Counted Cancelled 02/14/22 08:50 Atypical Lymphs % Cancelled 02/14/22 08:50 Absolute Neutrophils Cancelled 02/14/22 08:50 Segmented Neutrophils Cancelled 02/14/22 08:50 Abs Segm Neuts (Man) Cancelled 02/14/22 08:50 Band Neutrophils Cancelled 02/14/22 08:50 Abs Band Neuts (Man) Cancelled 02/14/22 08:50 Absolute Lymphocytes Cancelled 02/14/22 08:50 Lymphocytes (Manual) Cancelled 02/14/22 08:50 Monocytes (Manual) Cancelled 02/14/22 08:50 Absolute Monocytes Cancelled 02/14/22 08:50 Eosinophils (Manual) Cancelled 02/14/22 08:50 Absolute Eosinophils Cancelled 02/14/22 08:50 Basophils (Manual) Cancelled 02/14/22 08:50 Absolute Basophils Cancelled 02/14/22 08:50 Metamyelocytes Cancelled 02/14/22 08:50 Myelocytes Cancelled 02/14/22 08:50 Promyelocytes Cancelled 02/14/22 08:50 Nucleated RBCs Cancelled 02/14/22 08:50 Nucleated RBCs # 0.0 /100WBC 02/14/22 08:50 Pathologist Review Cancelled 02/14/22 08:50 Hypersegmented Polys Cancelled 02/14/22 08:50 Blast Cells Cancelled 02/14/22 08:50 Smudge Cells Cancelled 02/14/22 08:50 Toxic Granulation Cancelled 02/14/22 08:50 Toxic Vacuolation Cancelled 02/14/22 08:50 Dohle Bodies Cancelled 02/14/22 08:50 David Rods Cancelled 02/14/22 08:50 Platelet Estimate Cancelled 02/14/22 08:50 Giant Platelets Cancelled 02/14/22 08:50 Polychromasia Cancelled 02/14/22 08:50 Hypochromasia Cancelled 02/14/22 08:50 Poikilocytosis Cancelled 02/14/22 08:50 Basophilic Stippling Cancelled 02/14/22 08:50 Anisocytosis Cancelled 02/14/22 08:50 Microcytosis Cancelled 02/14/22 08:50 Macrocytosis Cancelled 02/14/22 08:50 Spherocytes Cancelled 02/14/22 08:50 Sickle Cells Cancelled 02/14/22 08:50 Target Cells Cancelled 02/14/22 08:50 Tear Drop Cells Cancelled 02/14/22 08:50 Ovalocytes Cancelled 02/14/22 08:50 Stomatocytes Cancelled 02/14/22 08:50 Helmet Cells Cancelled 02/14/22 08:50 [place] Bodies Cancelled 02/14/22 08:50 Lucita Cells Cancelled 02/14/22 08:50 Crenated Cell Cancelled 02/14/22 08:50 Acanthocytes (Spur) Cancelled 02/14/22 08:50 Rouleaux Cancelled 02/14/22 08:50 Schistocytes Cancelled 02/14/22 08:50 RBC Morph Comment Cancelled 02/14/22 08:50 Sodium 142 mmol/L (136-145) 01/31/22 11:12 Potassium 3.8 mmol/L (3.5-5.1) 01/31/22 11:12 Chloride 101 mmol/L (98-107) 01/31/22 11:12 Carbon Dioxide 29 mmol/L (22-29) 01/31/22 11:12 Anion Gap 15.8 (5-19) 01/31/22 11:12 BUN 20 mg/dL (8-23) 01/31/22 11:12 Creatinine 0.8 mg/dL (0.5-0.9) 01/31/22 11:12 GFR Calculation Not Reportable 01/31/22 11:12 Glucose 94 mg/dL (65-115) 01/31/22 11:12 Calculated Osmolality 296 mOsm/kg (285-295) H 01/31/22 11:12 Calcium 8.8 mg/dL (8.5-10.5) 01/31/22 11:12 Blood Type B Positive 02/14/22 08:50 Rho(D) Type Positive 02/14/22 08:50 Antibody Screen Negative 02/14/22 08:50 Vitals Last Vital Signs Temp 98.1 F 02/15/22 12:00 Pulse 58 L 02/15/22 12:00 Resp 16 02/15/22 14:15 BP 101/64 02/15/22 12:00 Pulse Ox 93 02/15/22 12:00 O2 Del Method 02/15/22 12:01 Discharge Plan Discharge Patient Disposition: Home Health Service Condition: Stable Prescriptions: New oxycodone 5 mg Tablet 5 mg PO Q4H PRN (Reason: Moderate Pain) 7 Days Qty: 40 0RF celecoxib 200 mg Capsule 200 mg PO Q12H 14 Days Qty: 28 0RF Continued multivitamin 1 tab PO DAILY albuterol sulfate 2.5 mg /3 mL (0.083 %) solution for nebulization 2.5 mg inhalation Q6H acetaminophen [Tylenol Extra Strength] 500 mg tablet 500 mg PO Q6H PRN (Reason: Pain) albuterol sulfate [Ventolin HFA] 90 mcg/actuation HFA aerosol inhaler 2 inh inhalation Q4H PRN (Reason: shortness of breath or wheezing) Qty: 18 2RF chlorthalidone 25 mg tablet 25 mg PO DAILY Qty: 30 2RF duloxetine 60 mg capsule,delayed release(DR/EC) 60 mg PO BID Qty: 60 2RF ergocalciferol (vitamin D2) 1,250 mcg (50,000 unit) capsule 50,000 unit PO .weekly Qty: 4 2RF Rx Instructions: takes on mondays gabapentin 800 mg tablet 800 mg PO BID Qty: 60 2RF levothyroxine 88 mcg tablet 88 mcg PO .6 days week Qty: 30 2RF potassium chloride 10 mEq capsule, extended release 10 meq PO DAILY Qty: 30 2RF rosuvastatin 40 mg tablet 40 mg PO DAILY Qty: 30 2RF tramadol 50 mg tablet 50 mg PO BID PRN (Reason: pain) Qty: 60 2RF Incruse Ellipta 62.5 mcg/actuation blister with device 1 inh inhalation Q24H Qty: 30 2RF Xarelto 2.5 mg tablet 2.5 mg PO BID Qty: 60 2RF Discontinued naproxen 500 mg tablet 500 mg PO .4-5 tabs day PRN (Reason: Pain) Discharge Orders: Discharge Order (Routine); Ordered 02/15/22 Ordered By: Ike Santos Referrals: [facility] ([facility]) [Outside] Calin Sloan FNP [Physician Camera Machinist] - 02/18/22 10:30 am Discharge Diet: Advance as tolerated Discharge Activity: Limit activity as instructed Patient Instructions: Opioid Safety Activity Restrictions/Additional Instructions: Okay to shower. No soaking incision in tub Apply FirstIce up to 20 min/hr for pain and swelling Take Celebrex twice a day for the next 15 days for pain , discontinue other anti-inflammatories Take Tylenol 500mg (up to 2 tabs) 3 times a day for mild pain Take oxycodone for breakthrough pain. Exercises per physical therapy. May weight-bear as tolerated on total hip arthroplasty IF HAVE ANY PROBLEMS OR QUESTIONS CALL HOSPITAL NUTRITION SERVICES ASSISTANT AT AND ASK TO HAVE DR. FROILAN HARDING. Discharge Attestations Time Spent in Discharge Care*: other Quality Metrics Clinical Quality Measures [ No reported AMI, CVA or VTE this stay] Coding Level of Care Code Acute [facility] note Diagnoses Status post left hip replacement Z96.642 Chronic anemia D64.9
--- NOTE | 2022-02-15 18:03 | PC.NURSE ---
patient verbalized understanding of the discharge instructions any and all questions were answered. Patient left via wheelchair to private vehicle with sister.
== END 2022-02-15 18:06 | disposition home health service (06) ==
LOC: MEDSURG 21:00
PROVIDERS: Anesthesiology; Admitting Provider Orthopaedic Surgery; PCP Family Medicine; Visit Provider Orthopaedic Surgery
PROC: (CPT 27130; principal; 2022-02-14 09:25)
DX: M16.12 Unilateral primary osteoarthritis, left hip (principal); D64.9 Anemia, unspecified; J44.9 Chronic obstructive pulmonary disease, unspecified; I10 Essential (primary) hypertension; Z95.0 Presence of cardiac pacemaker; E78.5 Hyperlipidemia, unspecified; F41.9 Anxiety disorder, unspecified; F32.A Depression, unspecified; E03.9 Hypothyroidism, unspecified; I44.0 Atrioventricular block, first degree; E55.9 Vitamin D deficiency, unspecified; F17.210 Nicotine dependence, cigarettes, uncomplicated
CPT/HCPCS: 27130; 36415; 73501; 80048; 85018; 85025; 86850; 86900; 94640; 97116; 97161; 97166; 97530; C1776; G0378; J1580; J2250; J2270; J2704; J3490; J7030; J7644

== ENCOUNTER → 2022-03-09 13:02 | Outpatient (BNVA) | payer MEDICARE, MEDICAID, SELFPAY | PROVIDERS: PCP Family Medicine; Visit Provider Nurse Practitioner Family | DX: Z96.642 Presence of left artificial hip joint (principal) | CPT/HCPCS: 73502; 99024 ==

== ENCOUNTER → 2022-06-21 14:22 | Outpatient (BNVA) | payer MEDICARE, MEDICAID, SELFPAY | PROVIDERS: PCP Family Medicine; Visit Provider Nurse Practitioner | DX: E03.8 Other specified hypothyroidism (principal); E61.1 Iron deficiency; E55.9 Vitamin D deficiency, unspecified; J43.9 Emphysema, unspecified | CPT/HCPCS: 71046; 80053; 80061; 82306; 83540; 84443; 85025 ==

== ENCOUNTER → 2022-06-28 15:15 | Outpatient (BNVA) | payer MEDICARE, MEDICAID, SELFPAY | PROVIDERS: PCP Nurse Practitioner; Visit Provider Nurse Practitioner Family | DX: I10 Essential (primary) hypertension (principal); Z95.0 Presence of cardiac pacemaker; F17.210 Nicotine dependence, cigarettes, uncomplicated | CPT/HCPCS: 93296; 99214 ==

== ENCOUNTER → 2022-07-05 13:10 | Outpatient (BNVA) | payer MEDICARE, MEDICAID, SELFPAY | PROVIDERS: PCP Nurse Practitioner; Visit Provider Nurse Practitioner Family | DX: Z96.642 Presence of left artificial hip joint (principal); R26.9 Unspecified abnormalities of gait and mobility | CPT/HCPCS: 73502; 99214 ==

== ENCOUNTER 2022-07-12 06:00 | Outpatient (RCR) | payer MEDICARE, MEDICAID, SELFPAY | END 2022-08-05 23:59 | disposition home or self-care (01) | LOC: TPT 06:00 | PROVIDERS: PCP Nurse Practitioner; Visit Provider Nurse Practitioner Family | DX: R26.9 Unspecified abnormalities of gait and mobility (principal) | CPT/HCPCS: 97110; 97116; 97163 ==

== ENCOUNTER 2022-08-06 06:00 | Outpatient (RCR) | payer MEDICARE, MEDICAID, SELFPAY | END 2022-09-01 23:59 | disposition home or self-care (01) | LOC: TPT 06:00 | PROVIDERS: PCP Nurse Practitioner; Visit Provider Nurse Practitioner Family | DX: R26.89 Other abnormalities of gait and mobility (principal) | CPT/HCPCS: 97110; 97116 ==

== ENCOUNTER → 2022-08-31 12:57 | Outpatient (BNVA) | payer MEDICARE, MEDICAID, SELFPAY | PROVIDERS: PCP Nurse Practitioner; Visit Provider Nurse Practitioner Family | DX: Z96.642 Presence of left artificial hip joint (principal); Z98.890 Other specified postprocedural states | CPT/HCPCS: 73502; 99213 ==

== ENCOUNTER → 2022-09-22 15:55 | Outpatient (BNVA) | payer MEDICARE, MEDICAID, SELFPAY | PROVIDERS: PCP Nurse Practitioner; Visit Provider Nurse Practitioner | DX: E55.9 Vitamin D deficiency, unspecified (principal); E03.8 Other specified hypothyroidism; E61.1 Iron deficiency | CPT/HCPCS: 80053; 82607; 83540; 84443 ==

== ENCOUNTER → 2022-10-06 08:09 | Outpatient (BNVA) | payer MEDICARE, MEDICAID, SELFPAY | PROVIDERS: PCP Nurse Practitioner; Visit Provider Internal Medicine Cardiovascular Disease | DX: Z45.010 Encounter for checking and testing of cardiac pacemaker pulse generator [battery] (principal) | CPT/HCPCS: 93296 ==

== ENCOUNTER 2022-12-15 17:03 | Inpatient (IN) | payer MEDICARE, MEDICAID, SELFPAY ==
[2022-12-15] VITALS (10 sets, daily range): BP systolic 110–146; BP diastolic 44–72; PULSE 58–91; RESP 15–18; TEMP 36.6–36.8; O2SAT 93–97; BMI 26.5
[2022-12-15 19:00] LABS: Basophils % 0.6 %; Eosinophils # 0.1 10^3/uL (0.0-0.8); Eosinophils % 1.5 %; Hematocrit 22.2 % (37.0-47.0); Lymphocytes # 1.5 10^3/uL (0.8-4.8); Lymphocytes % 20.2 %; Mean Corpuscular HGB Conc 25.2 g/dL (30.0-36.0); Mean Corpuscular Hemoglobin 19.6 pg (28.0-34.0); Mean Corpuscular Volume 77.6 fl (81-99); Mean Platelet Volume 11.7 fL (7.4-10.4); Monocytes # 0.6 10^3/uL (0.2-0.9); Monocytes % 7.9 %; Neutrophils # 5.03 10^3/uL (1.8-7.7); Neutrophils % 69.4 %; Nucleated Red Blood Cells % 0.6 %; Platelet Count 263 10^3/cmm (130-400); Red Blood Count 2.86 10^6/uL (4.1-5.3); Red Cell Distribution Width 19.3 % (12.1-15.1); White Blood Count 7.2 10^3/uL (4.0-10.0)
[2022-12-15 19:05] LABS: Hemoglobin 5.6 g/dL (11.5-15.3)
--- NOTE | 2022-12-15 19:06 | PC.NURSE ---
Shlomo informed of critical lab of hemoglobin of 5.6. No new orders received at this time.
[2022-12-15 19:28] LABS: Alanine Aminotransferase 10 U/L (0-33); Albumin Level 3.3 g/dL (3.5-5.2); Alkaline Phosphatase 43 U/L (35-105); Anion Gap 15.1 (5-19); Aspartate Amino Transferase 14 U/L (0-32); Blood Urea Nitrogen 14 mg/dL (8-23); Calcium 8.9 mg/dL (8.5-10.5); Carbon Dioxide 27 mmol/L (22-29); Chloride 99 mmol/L (98-107); Globulin 3.1 g/dL (1.3-4.6); Glucose 97 mg/dL (65-115); Osmolality Calculated 286 mOsm/kg (285-295); Potassium 3.1 mmol/L (3.5-5.1); Sodium 138 mmol/L (136-145); Thyroid Stimulating Hormone 1.58 uIU/mL (0.27-4.20); Total Bilirubin 0.4 mg/dL (0.15-1.2); Total Protein 6.4 g/dL (6.6-8.7)
--- NOTE | 2022-12-15 20:50 | ED_ITS ---
HPI - Recheck/Abnormal Lab/Rx General: Chief Complaint: Recheck/Abnormal Lab/Rx Stated Complaint: physician sent for, anemia Time Seen by Provider: 12/15/22 19:42 Source: patient Mode of arrival: ambulatory Limitations: no limitations History of Present Illness: 77-year-old female states she been having increased weakness over the last 2 weeks states she saw her PCP today they told her she was anemic. She states she has had anemia in the past she denies any blood in her stool she denies any fevers she states that she is felt extremely weak especially with exertion denies passing out she is not hypotensive here Review of Systems Const: Reports: fatigue and malaise; Denies: fever(s) or chills ENMT: Denies: throat pain or dental pain Card: Denies: chest pain Resp: Denies: dyspnea GI: Denies: abdominal pain, nausea, vomiting or diarrhea : Denies: dysuria Musc: Denies: neck pain or back pain Skin/Breast: Denies: rash Neuro: Denies: headache(s) PFSH ED PFSH: Medical History Adult onset hypothyroidism Anxiety and depression Dyslipidemia Enrolled in chronic care management Essential hypertension Heart block AV second degree History of pacemaker Pacemaker Tobacco abuse Vitamin D deficiency Surgical History History of cholecystectomy History of colonoscopy History of gastric bypass History of laparoscopic appendectomy History of partial surgical removal of colon History of right hip replacement History of thyroidectomy Family History Other Cancer Diabetes Hypertension Social History Smoking and tobacco status: current every day smoker cigarettes Packs smoked per day: 1 [ Other cigarette details: started gummies / process of quitting] Second hand smoke exposure: Yes Smoking risk assessment/counseling performed?: No Alcohol intake: current Alcohol intake frequency: holidays/special occasions only Alcohol type: beer and hard liquor Desire information about alcohol rehabilitation?: No Counseling given: No Substance/Drug Use: never Desire information about substance/drug rehabilitation?: No Counseling given: No Adopted: No Caregiver/support person: No Lives independently: Yes Household members: none Housing: House Marital status: Number of children: 2 Current occupational status: retired Do you think of yourself as: Straight/Heterosexual Current gender identity: Female Physical Exam Const: COMMON NORMALS: patient oriented x3 OTHER: pale HENMT: COMMON NORMALS: normocephalic and atraumatic HEAD & SCALP: normocephalic and atraumatic Neck/C-Spine: COMMON NORMALS: full ROM and supple Chest: COMMONS NORMALS: normal inspection of the chest and normal palpation of entire chest wall Resp: COMMON NORMALS: normal respiratory effort, No retractions, No use of accessory muscles and clear to auscultation bilaterally AUSCULTATION: clear to auscultation bilaterally Cardio: COMMON NORMALS: regular rate, regular rhythm and No murmurs present (Cardio) RATE: regular rate RHYTHM: regular rhythm GI: COMMON NORMALS: Normal to inspection, nondistended, normoactive bowel sounds present, Soft to palpation, non-tender and no masses PALPATION: Yes Soft to palpation OTHER: Rectal exam showed brown stool Hemoccult negative Extremity: COMMON NORMALS: normal to inspection and full ROM Neuro: COMMON NORMALS: patient oriented x3, moves all extremities and no focal motor deficits Psych: COMMON NORMALS: mental status grossly normal, Normal thought process present and cooperative THOUGHT PROCESS: Normal thought process present Skin: COMMON NORMALS: no rashes or lesions noted and no wounds GENERAL SKIN EXAM: no rashes or lesions noted Course Vital Signs: Vital signs: Vital Signs Temperature 98.2 F 12/15/22 19:07 Pulse Rate 91 12/15/22 19:07 Respiratory Rate 16 12/15/22 20:28 Blood Pressure 146/56 12/15/22 20:28 Pulse Oximetry 94 12/15/22 19:07 MDM - Recheck/Abnormal Lab/Rx Medical Decision Making Patient presents with anemia is likely chronic in nature her hemoglobin here is 5.3 she is not hypotensive no signs of bleeding will transfuse 2 units spoke to the hospitalist will admit for observation Lab Data 12/15/22 18:46 12/15/22 18:46 Laboratory Results WBC 7.2 10^3/uL (4.0-10.0) 12/15/22 18:46 RBC 2.86 10^6/uL (4.1-5.3) L 12/15/22 18:46 Hgb 5.6 g/dL (11.5-15.3) L* 12/15/22 18:46 Hct 22.2 % (37.0-47.0) L 12/15/22 18:46 MCV 77.6 fl (81-99) L 12/15/22 18:46 MCH 19.6 pg (28.0-34.0) L 12/15/22 18:46 MCHC 25.2 g/dL (30.0-36.0) L 12/15/22 18:46 RDW 19.3 % (12.1-15.1) H 12/15/22 18:46 Plt Count 263 10^3/cmm (130-400) 12/15/22 18:46 MPV 11.7 fL (7.4-10.4) H 12/15/22 18:46 Neut % (Auto) 69.4 % 12/15/22 18:46 Lymph % (Auto) 20.2 % 12/15/22 18:46 Dickey % (Auto) 7.9 % 12/15/22 18:46 Eos % (Auto) 1.5 % 12/15/22 18:46 Baso % (Auto) 0.6 % 12/15/22 18:46 Neut # (Auto) 5.03 10^3/uL (1.8-7.7) 12/15/22 18:46 Lymph # (Auto) 1.5 10^3/uL (0.8-4.8) 12/15/22 18:46 Dickey # (Auto) 0.6 10^3/uL (0.2-0.9) 12/15/22 18:46 Eos # (Auto) 0.1 10^3/uL (0.0-0.8) 12/15/22 18:46 Baso # (Auto) 0.0 10^3/uL (0.0-0.1) 12/15/22 18:46 Nucleated RBC % (auto) 0.6 % 12/15/22 18:46 Nucleated RBCs # 0.0 /100WBC 12/15/22 18:46 Sodium 138 mmol/L (136-145) 12/15/22 18:46 Potassium 3.1 mmol/L (3.5-5.1) L 12/15/22 18:46 Chloride 99 mmol/L (98-107) 12/15/22 18:46 Carbon Dioxide 27 mmol/L (22-29) 12/15/22 18:46 Anion Gap 15.1 (5-19) 12/15/22 18:46 BUN 14 mg/dL (8-23) 12/15/22 18:46 Creatinine 0.8 mg/dL (0.5-0.9) 12/15/22 18:46 GFR Calculation Not Reportable 12/15/22 18:46 Glucose 97 mg/dL (65-115) 12/15/22 18:46 Calculated Osmolality 286 mOsm/kg (285-295) 12/15/22 18:46 Calcium 8.9 mg/dL (8.5-10.5) 12/15/22 18:46 Total Bilirubin 0.4 mg/dL (0.15-1.2) 12/15/22 18:46 AST 14 U/L (0-32) 12/15/22 18:46 ALT 10 U/L (0-33) 12/15/22 18:46 Alkaline Phosphatase 43 U/L (35-105) 12/15/22 18:46 Total Protein 6.4 g/dL (6.6-8.7) L 12/15/22 18:46 Albumin 3.3 g/dL (3.5-5.2) L 12/15/22 18:46 Globulin 3.1 g/dL (1.3-4.6) 12/15/22 18:46 TSH 1.58 uIU/mL (0.27-4.20) 12/15/22 18:46 Discharge Plan Discharge Patient Disposition: Admitted As Inpatient Admit Provider: Payam Rivas Clinical Impression: Anemia Condition: Stable Coding Level of Care Code ED Budget Record Clerk for Melissa Granda
--- NOTE | 2022-12-15 20:56 | P.HP_ITS ---
Providers/Chief Complaint Admitting Physician: Payam Rivas MD Primary Care Provider: TANIA [facility] Chief Complaint: physician sent for, anemia History of Present Illness Sobia Mercer is a 77 year old female with history of GI cancer, patient had polypectomy in the past roughly 16 years ago, she is on rivaroxaban for A-fib, she did not take her dose on 12/15, presented today from the clinic for severe anemia. Patient is stating that she has been weak and lethargic for last few weeks she has not noticed any hematuria, blood in vomiting, blood in stool, she has not noticed change in stool color, patient is stating that she has a habit of checking stool color, she has noticed blood in sputum once in a while which is minimal. She recently quit smoking a week ago. She is denying chest pain, diarrhea. Abdominal pain. In the ER 2 units PRBC requested for severe anemia, FOBT requested, rectal exam negative for bleeding Please note, patient is stating that she is taking ibuprofen on daily basis for her hip pain no previous history of GI ulcers Review of Systems Const: Reports: chills, body aches, fatigue and malaise Eyes: Denies: change in vision ENMT: Denies: throat pain Card: Denies: chest pain Resp: Denies: dyspnea GI: Reports: abdominal pain : Denies: flank pain Musc: Denies: neck pain Skin/Breast: Denies: rash Neuro: Denies: headache(s) Psych: Reports: anxiety Endo: Denies: polyuria Osmany/Lymph: Denies: easy bruising Medications/Allergies Home Medications Medication Instructions Recorded Confirmed Last Taken Type multivitamin [Daily Multi-Vitamin] 1 tab PO DAILY 05/13/19 12/15/22 12/26/21 History albuterol sulfate 2.5 mg/3 mL 2.5 mg inhalation Q6H 07/13/20 12/15/22 02/13/22 History (0.083 %) solution for nebulization acetaminophen 500 mg tablet 500 mg PO Q6H PRN Pain 08/12/20 12/15/22 02/12/22 History (Tylenol Extra Strength) promethazine-DM 6.25 mg-15 mg/5 mL 5 ml PO Q6H cough #120 mL 06/21/22 12/15/22 Unknown Rx oral syrup chlorthalidone 25 mg tablet 25 mg PO DAILY #30 tabs 09/22/22 12/15/22 Unknown Rx albuterol sulfate 90 mcg/actuation 2 inh inhalation Q4H PRN shortness 12/15/22 12/15/22 Unknown Rx aerosol inhaler (Ventolin HFA) of breath or wheezing #18 grams duloxetine 60 mg capsule,delayed 60 mg PO BID #60 caps 12/15/22 12/15/22 Unknown Rx release ergocalciferol (vitamin D2) 1,250 50,000 unit PO .weekly #4 caps 12/15/22 12/15/22 Unknown Rx mcg (50,000 unit) capsule gabapentin 800 mg tablet 800 mg PO BID #60 tabs 12/15/22 12/15/22 Unknown Rx levothyroxine 88 mcg tablet 88 mcg PO DAILY #30 tabs 12/15/22 12/15/22 Unknown Rx potassium chloride 10 mEq 10 meq PO DAILY #30 caps 12/15/22 12/15/22 Unknown Rx capsule,extended release rivaroxaban 2.5 mg tablet (Xarelto) 2.5 mg PO BID #60 tabs 12/15/22 12/15/22 Unknown Rx rosuvastatin 40 mg tablet 40 mg PO DAILY #30 tabs 12/15/22 12/15/22 Unknown Rx tramadol 50 mg tablet 50 mg PO BID PRN pain #60 tabs 12/15/22 12/15/22 Unknown Rx umeclidinium 62.5 mcg/actuation 1 inh inhalation Q24H #30 ea 12/15/22 12/15/22 Unknown Rx blister powder for inhalation (Incruse Ellipta) Allergies Allergy/AdvReac Type Severity Reaction Status Date / Time No Known Allergies Allergy Verified 12/15/22 14:38 PFSH Acute PFSH: Medical History Adult onset hypothyroidism Anxiety and depression Dyslipidemia Enrolled in chronic care management Essential hypertension Heart block AV second degree History of pacemaker Pacemaker Tobacco abuse Vitamin D deficiency Surgical History History of cholecystectomy History of colonoscopy History of gastric bypass History of laparoscopic appendectomy History of partial surgical removal of colon History of right hip replacement History of thyroidectomy Family History Other Cancer Diabetes Hypertension Social History Smoking and tobacco status: current every day smoker cigarettes Packs smoked per day: 1 [ Other cigarette details: started gummies / process of quitting] Second hand smoke exposure: Yes Smoking risk assessment/counseling performed?: No Alcohol intake: current Alcohol intake frequency: holidays/special occasions only Alcohol type: beer and hard liquor Desire information about alcohol rehabilitation?: No Counseling given: No Substance/Drug Use: never Desire information about substance/drug rehabilitation?: No Counseling given: No Adopted: No Caregiver/support person: No Lives independently: Yes Household members: none Housing: House Marital status: Number of children: 2 Current occupational status: retired Do you think of yourself as: Straight/Heterosexual Current gender identity: Female Vitals/I&O/Wt Last Vital Signs Temp 98.2 F 12/15/22 19:07 Pulse 91 12/15/22 19:07 Resp 16 12/15/22 20:28 BP 146/56 12/15/22 20:28 Pulse Ox 94 12/15/22 19:07 Weight last 48 hrs Weight 68.039 kg Physical Exam Narrative: Patient is awake and alert Appears stated age Pale complexion Hemodynamically stable Heart rate in 70s Currently on room air Abdomen soft No sign of heart failure Abdomen nontender [id number] at the bedside S1, S2 Paced rhythm Nonfocal neuroexam Pleasant and cooperative Data 12/15/22 18:46 12/15/22 18:46 A&P Assessment and plan (1) Chronic anemia: (2) Heart block AV second degree: (3) Dietary iron deficiency: (4) Generalized muscle ache: (5) Enrolled in chronic care management: (6) Pacemaker: (7) Essential hypertension: (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: (9) Adult onset hypothyroidism: (10) Microcytic anemia: (11) Severe anemia: Plan Acute on chronic microcytic anemia History of iron deficiency Check B12 and iron 2 unit PRBC request Hemodynamic stable Symptomatic anemia with pale complexion, shortness of breath and fatigue History of GI cancer in the family, patient had precancerous polyps removed 16 years ago, no recent GI bleed noticed by the patient Dr. Byrne consulted She will be n.p.o. after midnight Last dose of rivaroxaban was on 12/14, she did not take her medication today COPD: No acute exacerbation She quit smoking 1 week ago Patient is stating that she noticed mild hemoptysis but nothing significant No previous history of lung mass or significant nodule, she may qualify for low- dose CT scan for lung cancer screening Hypertension: Hold chlorthalidone and antihypertensive regimen Hypothyroid continue levothyroxine Hypokalemia: Potassium repleted DVT prophylaxis: SCDs A-fib status post pacemaker hold anticoagulating agent N.p.o. after midnight Full code Attestations Medical Necessity Statement*: Anticipating more than 2 midnights management of severe anemia will require EGD Diagnoses Chronic anemia D64.9 Heart block AV second degree I44.1 Dietary iron deficiency E61.1 Generalized muscle ache M79.10 Enrolled in chronic care management Z78.9 Pacemaker Z95.0 Essential hypertension I10 COPD (chronic obstructive pulmonary disease) with emphysema J43.9 Adult onset hypothyroidism E03.8 Microcytic anemia D50.9 Severe anemia D64.9
[2022-12-15 21:33] LABS: D Dimer 0.94 ug/mIFEU (0-0.59)
--- NOTE | 2022-12-15 21:35 | PC.NURSE ---
ADMIT NOT Pt was received to floor at 0 via wheelchair. Alert & oriented. Says has been feeling weak, dizzy & lightheaded for about 3 weeks. Went to see Dr veronica and was sent to hospital for admit to receive transfusion. Consent was signed prior to transfusion. First unit being started by RN and will monitor
[2022-12-15 21:43] LABS: Reticulocyte % 4.7 % (0.5-2.0)
[2022-12-15] MEDS: sodium chloride 0.9% (100 ml) 100 ML 20 ML (21:44)
[2022-12-15] MEDS: potassium chloride oral liq 20 mEq/15 mL UDC 40 MEQ PO (21:54)
[2022-12-16] VITALS (54 sets, daily range): BP systolic 99–174; BP diastolic 41–101; PULSE 64–104; RESP 15–36; TEMP 36.3–37.4; O2SAT 80–100; BMI 26.5
[2022-12-16 00:39] LABS: Ferritin 8 ng/mL (15-150); Iron 14 ug/dL (37-145); Lactate Dehydrogenase 180 U/L (135-214); Percent Saturation 3.1 % (20-50); Total Iron Binding Capacity 449 mcg/dl; Unsaturated Iron Binding 435 ug/dL (112-347)
[2022-12-16 00:55] LABS: Vitamin B12 427 pg/mL (232-1245)
--- NOTE | 2022-12-16 01:30 | PC.NURSE ---
PRBC's Second unit of blood has been started by RN. Will monitor
[2022-12-16] MEDS: ipratropium-albuterol 3 mL Neb INHALATION (03:57)
[2022-12-16] MEDS: FUROsemide 10 mg/mL SDV 2mL 20 MG IVP (03:57)
--- NOTE | 2022-12-16 04:10 | PC.NURSE ---
RESP DISTRESS Pt was up to BSC and began c/o sudden SOB. Resp labored at 36-40/min. Diaphoretic. Crackles in bases. Blood was stopped. Denies any chest pain. O2 sat was 80%, BP 174/72. Pt thought all she needed was a Albuterol inhaler. Was placed on O2 and up to 6l NC with sat only up to 85%. Would not put on NRB mask. was notified with orders received for IV Lasix and BIPAP. Pt would not put on BIPAP and both nursing and RT tried around 20 minutes to get her to do so. Upon placement on the BIPAP sats immediately into upper 90's and pt says much better. Dr Rivas came to floor to see pt after notifying him that she was refusing BIPAP and sats at 83% on An Oxymask at 15l. She had just consented to try the BIPAP and had just gotten it on when Dr arrived to room. Order was given for PCXR and transfer to ICU. Did receive the IV Lasix 20mg dose. Report was called to [facility] and pt was taken to ICU4. Alert and on BIPAP
--- NOTE | 2022-12-16 04:12 | XRR_ITS ---
PROCEDURE INFORMATION: Exam: XR Chest Exam date and time: 12/16/2022 4:59 AM Age: 77 years old Clinical indication: Shortness of breath; Prior surgery; Surgery date: 6+ months; Surgery type: Pacer. Gastric bypass. Gb; Patient HX: Worsening SOB requiring bipap. ; Additional info: Resp distress TECHNIQUE: Imaging protocol: Radiologic exam of the chest. Views: 1 view. COMPARISON: CR XR chest 2V* [id number] 06/21/2022 2:22 PM FINDINGS: Tubes, catheters and devices: Left chest ICD unchanged in position. Lungs: Diffusely increased interstitial lung markings. Ground-glass pulmonary opacities. Emphysematous lung disease. Pleural spaces: Bilateral pleural effusions greater right than left. Negative for pneumothorax. Heart/Mediastinum: Mild cardiomegaly. Bones/joints: Degenerative changes in the shoulders. Spondyloarthropathy throughout the spine. No fracture. XR/XR chest 1V portable [id number] IMPRESSION: Secondary findings of CHF including pulmonary edema and bilateral pleural effusions.
--- NOTE | 2022-12-16 04:48 | PC.NURSE ---
FAMILY NOTIFICATION Was unable to reach sister Feli listed as pts contact. Able to reach friend Isaura Gastelum and she is going to cont to try to reach Feli and notify of transfer to ICU4
--- NOTE | 2022-12-16 05:08 | PC.NURSE ---
FAMILY RETURNED CALL Pts sister Feli called and update given regarding transfer to ICU. Was transferred to unit to get update from ICU nurse
[2022-12-16 06:32] LABS: Basophils # 0.1 10^3/uL (0.0-0.1); Basophils % 0.3 %; Eosinophils % 0.2 %; Hematocrit 30.8 % (37.0-47.0); Hemoglobin 8.6 g/dL (11.5-15.3); Lymphocytes # 0.6 10^3/uL (0.8-4.8); Lymphocytes % 3.3 %; Mean Corpuscular HGB Conc 27.9 g/dL (30.0-36.0); Mean Corpuscular Hemoglobin 22.6 pg (28.0-34.0); Mean Corpuscular Volume 81.1 fl (81-99); Mean Platelet Volume 11.9 fL (7.4-10.4); Monocytes # 0.9 10^3/uL (0.2-0.9); Neutrophils # 15.91 10^3/uL (1.8-7.7); Neutrophils % 90.6 %; Nucleated Red Blood Cells % 0.2 %; Platelet Count 253 10^3/cmm (130-400); Red Cell Distribution Width 20.8 % (12.1-15.1); White Blood Count 17.6 10^3/uL (4.0-10.0)
[2022-12-16 06:56] LABS: Blood Urea Nitrogen 15 mg/dL (8-23); Calcium 8.4 mg/dL (8.5-10.5); Carbon Dioxide 24 mmol/L (22-29); Chloride 100 mmol/L (98-107); Glucose 98 mg/dL (65-115); Magnesium 1.9 mg/dL (1.7-2.3); Osmolality Calculated 291 mOsm/kg (285-295); Phosphorus 5.2 mg/dL (2.5-4.5); Sodium 140 mmol/L (136-145)
[2022-12-16 06:57] LABS: Anion Gap 19.2 (5-19); Potassium 3.2 mmol/L (3.5-5.1)
--- NOTE | 2022-12-16 07:56 | ECG_ITS ---
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 Measurements Intervals [place] Rate: 74 P: 89 IN: 176 QRS: -46 QRSD: 168 T: 111 QT: 503 QTc: 562 Interpretive Statements ELECTRONIC ATRIAL PACEMAKER ELECTRONIC VENTRICULAR PACEMAKER ABNORMAL RHYTHM ECG Compared to ECG 12/14/2021 12:15:21 No significant changes Electronically Signed On 12-16-2022 9:24:01 CDT by Amadeo Pillai M.D. [id number]
[2022-12-16 08:31] LABS: Troponin(5th) Baseline 42 ng/L (0-10)
[2022-12-16 08:36] LABS: NT Pro B Type Natriuretic Pept 2157 pg/mL (0-450); Procalcitonin 0.07 ng/mL (0-0.5)
[2022-12-16] MEDS: iron sucrose 200 MG in sodium chloride 0.9% (100 ml) 100 ML 220 MG IV (08:47)
[2022-12-16] MEDS: pantoprazole 40 mg SDV IVP ×2 (08:48→17:47)
[2022-12-16] MEDS: sucralfate 1 gm Tablet PO ×2 (08:48→20:44)
[2022-12-16] MEDS: levothyroxine 100 mcg SDV 44 MCG IVP (08:48)
[2022-12-16] MEDS: FUROsemide 10 mg/mL SDV 4mL 40 MG IVP (09:04)
[2022-12-16 09:13] LABS: Troponin 5 2HR 47.08 ng/L (0-10); Troponin 5 2HR Delta 5.08 ABS# (0-10)
--- NOTE | 2022-12-16 09:37 | PC.PHAR ---
PT UNCOOPERATIVE WITH MED LIST. CALLED HER PHARMACY TO VERIFY ALL MEDICATIONS. 12/16/22
--- NOTE | 2022-12-16 09:56 | ECG_ITS ---
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 Measurements Intervals [place] Rate: 74 P: 99 MT: 179 QRS: -48 QRSD: 170 T: 111 QT: 504 QTc: 560 Interpretive Statements ELECTRONIC ATRIAL PACEMAKER ELECTRONIC VENTRICULAR PACEMAKER ABNORMAL RHYTHM ECG Compared to ECG 12/16/2022 08:20:30 No significant changes Electronically Signed On 12-16-2022 10:54:19 CDT by Mehreen Thurman M.D. [id number]
[2022-12-16 10:09] LABS: Add Urine Microscopic? NO; Charge for UA Resulting for Rev
[2022-12-16 10:48] LABS: Bilirubin Urine Neg (Negative); Blood Urine Neg (Negative); Glucose Urine UA Norm (Normal); Ketones Urine Negative (Negative); Leukocyte Esterase Urine Negative (Negative); Nitrate Urine Negative (Negative); Protein Urine Neg (Negative); Urine Appearance Clear (CLEAR); Urine Color Colorless (Yellow); Urobilinogen Urine Norm (Negative); pH Urine 7 (5-7)
[2022-12-16 13:13] LABS: Troponin 5 6HR 40.21 ng/L (0-10)
[2022-12-16 13:15] LABS: Troponin 5 6HR Delta -1.79 ng/L (0-12)
--- NOTE | 2022-12-16 14:07 | P.ANESASSM_ITS ---
Pre-Anesthetic Assessment Height/Weight: Height 1.6 m Weight 68.039 kg Temp Pulse Resp BP Pulse Ox O2 Del Method O2 Flow Rate 98 F 70 18 134/101 92 Nasal Cannula 3 12/16/22 13:20 12/16/22 10:00 12/16/22 10:00 12/16/22 10:00 12/16/22 09:30 12/16/22 10:00 12/16/22 10:00 FiO2 30 12/16/22 09:00 Operation Date: 12/16/22 13:40 Proposed Procedures p EGD(Not Applicable) - Anurag Byrne DO Familial anesthetic complications: None Was Beta Vivi taken within 24 hours: N/A Was Clonidine taken within 24 hours: N/A Last intake: > 8hrs Social Tobacco and No alcohol Exam alert, oriented x 3, clear to auscultation bilaterally and regular rate & rhythm Airway Mallampati: Class II Dentition: false Pulmonary Chronic Obstructive Pulmonary Disease TRALI after tranfusion - getting lasix CV/HEM Hypertension pacemaker Metabolic Hyperlipidemia Anesthetic Plan ASA status: 4 Anesthesia: MAC Risk of > 500 ml blood loss (7ml/kg in children): No Medications/Allergies Home Medications Medication Instructions Recorded Confirmed Last Taken Type multivitamin [Daily Multi-Vitamin] 1 tab PO DAILY 05/13/19 12/16/22 12/26/21 History acetaminophen 500 mg tablet 500 mg PO Q6H PRN Pain 08/12/20 12/16/22 02/12/22 History (Tylenol Extra Strength) chlorthalidone 25 mg tablet 25 mg PO DAILY #30 tabs 09/22/22 12/16/22 Unknown Rx albuterol sulfate 90 mcg/actuation 2 inh inhalation Q4H PRN shortness 12/15/22 12/16/22 Unknown Rx aerosol inhaler (Ventolin HFA) of breath or wheezing #18 grams duloxetine 60 mg capsule,delayed 60 mg PO BID #60 caps 12/15/22 12/16/22 Unknown Rx release ergocalciferol (vitamin D2) 1,250 50,000 unit PO .weekly #4 caps 12/15/22 12/16/22 Unknown Rx mcg (50,000 unit) capsule gabapentin 800 mg tablet 800 mg PO BID #60 tabs 12/15/22 12/16/22 Unknown Rx levothyroxine 88 mcg tablet 88 mcg PO DAILY #30 tabs 12/15/22 12/16/22 Unknown Rx potassium chloride 10 mEq 10 meq PO DAILY #30 caps 12/15/22 12/16/22 Unknown Rx capsule,extended release rivaroxaban 2.5 mg tablet (Xarelto) 2.5 mg PO BID #60 tabs 12/15/22 12/16/22 Unknown Rx rosuvastatin 40 mg tablet 40 mg PO DAILY #30 tabs 12/15/22 12/16/22 Unknown Rx tramadol 50 mg tablet 50 mg PO BID PRN pain #60 tabs 12/15/22 12/16/22 Unknown Rx umeclidinium 62.5 mcg/actuation 1 inh inhalation Q24H #30 ea 12/15/22 12/16/22 Unknown Rx blister powder for inhalation (Incruse Ellipta) Allergies Allergy/AdvReac Type Severity Reaction Status Date / Time No Known Allergies Allergy Verified 12/15/22 14:38 Current Medications Generic Name Dose Route Start Last Admin Trade Name Freq PRN Reason Stop Dose Admin Albuterol/Ipratropium 3 ml 12/15/22 21:23 12/16/22 03:57 Ipratropium-Albuterol 3 Ml Neb INHALATION 3 ml Q6H PRN Administration SHORTNESS OF BREATH Iron Sucrose 200 mg/ Sodium 110 mls @ 220 mls/hr 12/16/22 08:00 12/16/22 09:35 Chloride IV 12/20/22 08:29 Infused Q24H EDUARDO Infusion Pantoprazole Sodium 40 mg 12/16/22 09:00 12/16/22 08:48 Pantoprazole 40 Mg Sdv IVP 40 mg BID EDUARDO Administration Sucralfate 1 gm 12/16/22 08:00 12/16/22 08:48 Sucralfate 1 Gm Tablet PO 1 gm Q12H EDUARDO Administration PFSH Anesthesia Medical History Adult onset hypothyroidism Anxiety and depression Dyslipidemia Enrolled in chronic care management Essential hypertension Heart block AV second degree History of pacemaker Pacemaker Tobacco abuse Vitamin D deficiency Surgical History History of cholecystectomy History of colonoscopy History of gastric bypass History of laparoscopic appendectomy History of partial surgical removal of colon History of right hip replacement History of thyroidectomy Family History Other Cancer Diabetes Hypertension Social History Smoking and tobacco status: current every day smoker cigarettes Packs smoked per day: 1 [ Other cigarette details: started gummies / process of quitting] Second hand smoke exposure: Yes Smoking risk assessment/counseling performed?: No Alcohol intake: current Alcohol intake frequency: holidays/special occasions only Alcohol type: beer and hard liquor Desire information about alcohol rehabilitation?: No Counseling given: No Substance/Drug Use: never Desire information about substance/drug rehabilitation?: No Counseling given: No Adopted: No Caregiver/support person: No Lives independently: Yes Household members: none Housing: House Marital status: Number of children: 2 Current occupational status: retired Do you think of yourself as: Straight/Heterosexual Current gender identity: Female Data Anesthesia 12/16/22 06:15 12/16/22 06:15 Short CBC 12/15/22 12/16/22 Range/Units 18:46 06:15 WBC 7.2 17.6 H (4.0-10.0) 10^3/uL Hgb 5.6 L* 8.6 L D (11.5-15.3) g/dL Hct 22.2 L 30.8 L D (37.0-47.0) % MCV 77.6 L 81.1 (81-99) fl Plt Count 263 253 (130-400) 10^3/cmm Neut % (Auto) 69.4 90.6 % Neut # (Auto) 5.03 15.91 H (1.8-7.7) 10^3/uL BMP 12/15/22 12/16/22 18:46 06:15 Sodium 138 140 Potassium 3.1 L 3.2 L Chloride 99 100 Carbon Dioxide 27 24 BUN 14 15 Creatinine 0.8 0.8 Glucose 97 98 Calcium 8.9 8.4 L Cardiac Enzymes 12/16/22 12/16/22 12/16/22 Range/Units 06:15 06:15 08:35 Troponin T Baseline 42 H (0-10) ng/L Troponin T 120 Minute 47.08 H (0-10) ng/L Delta Troponin T 5.08 (0-10) ABS# Troponin T Hi Sens 6Hr (0-10) ng/L Troponin T Hi Sens 6Hr Delta (0-12) ng/L NT-Pro-B Natriuret Pep 2157 H (0-450) pg/mL 12/16/22 Range/Units 12:32 Troponin T Baseline (0-10) ng/L Troponin T 120 Minute (0-10) ng/L Delta Troponin T (0-10) ABS# Troponin T Hi Sens 6Hr 40.21 H (0-10) ng/L Troponin T Hi Sens 6Hr Delta -1.79 L (0-12) ng/L NT-Pro-B Natriuret Pep (0-450) pg/mL Liver Function 12/15/22 Range/Units 18:46 Total Bilirubin 0.4 (0.15-1.2) mg/dL AST 14 (0-32) U/L ALT 10 (0-33) U/L Alkaline Phosphatase 43 (35-105) U/L Albumin 3.3 L (3.5-5.2) g/dL Urine 12/16/22 Range/Units 09:44 Urine Color Colorless (Yellow) Urine Appearance Clear (CLEAR) Urine pH 7 (5-7) Ur Specific [place] 1.000 L (1.005-1.030) Urine Protein Neg (Negative) Urine Glucose (UA) Norm (Normal) Urine Ketones Negative (Negative) Urine Nitrate Negative (Negative) Urine Bilirubin Neg (Negative) Ur Leukocyte Esterase Negative (Negative) Blood Bank 12/15/22 19:52 Blood Type B Positive Rho(D) Type Positive Antibody Screen Negative [place] 12/15/22 12/16/22 18:46 06:15 D-Dimer 0.94 H C-Reactive Protein 3.0 Microbiology 12/16/22 08:30 Blood Culture - Preliminary Blood SPECIMEN COLLECTED 12/16/22 08:30 Blood Culture - Preliminary Blood SPECIMEN COLLECTED Cardiac Studies: No Data to Display
--- NOTE | 2022-12-16 14:37 | P.CONIM_ITS ---
Providers/Reason For Consult Consulting Physician/Specialty*: Dr. Anurag Byrne, DO/General surgery Reason for Consult*: Anemia Attending Physician: Jesus Lara MD Primary Care Provider: IRINEO Marie History of Present Illness History of Present Illness Sobia Mercer is a 77 year old female with a history of DVT and chronic anemia, on rivaroxaban, who presented to the hospital due to fatigue and severe anemia. She was transfused PRBCs in the ER and taken to the ICU. She does report that she had nausea and vomiting but denies any hematemesis. She denies any abdominal pain, diarrhea, constipation, hematochezia and/or melena. She does have a history of unresectable colon polyp requiring a right hemicolectomy. Review of Systems General: Reports: 10 or more systems reviewed and unremarkable except in HPI and below Medications/Allergies Home Medications Medication Instructions Recorded Confirmed Last Taken Type multivitamin [Daily Multi-Vitamin] 1 tab PO DAILY 05/13/19 12/16/22 12/26/21 His tory acetaminophen 500 mg tablet 500 mg PO Q6H PRN Pain 08/12/20 12/16/22 02/12/22 History (Tylenol Extra Strength) chlorthalidone 25 mg tablet 25 mg PO DAILY #30 tabs 09/22/22 12/16/22 Unknown Rx albuterol sulfate 90 mcg/actuation 2 inh inhalation Q4H PRN shortness 12/15/22 12/16/22 Unknown Rx aerosol inhaler (Ventolin HFA) of breath or wheezing #18 grams duloxetine 60 mg capsule,delayed 60 mg PO BID #60 caps 12/15/22 12/16/22 Unknown Rx release ergocalciferol (vitamin D2) 1,250 50,000 unit PO .weekly #4 caps 12/15/22 12/16/22 Unknown Rx mcg (50,000 unit) capsule gabapentin 800 mg tablet 800 mg PO BID #60 tabs 12/15/22 12/16/22 Unknown Rx levothyroxine 88 mcg tablet 88 mcg PO DAILY #30 tabs 12/15/22 12/16/22 Unknown Rx potassium chloride 10 mEq 10 meq PO DAILY #30 caps 12/15/22 12/16/22 Unknown Rx capsule,extended release rivaroxaban 2.5 mg tablet (Xarelto) 2.5 mg PO BID #60 tabs 12/15/22 12/16/22 Unknown Rx rosuvastatin 40 mg tablet 40 mg PO DAILY #30 tabs 12/15/22 12/16/22 Unknown Rx tramadol 50 mg tablet 50 mg PO BID PRN pain #60 tabs 12/15/22 12/16/22 Unknown Rx umeclidinium 62.5 mcg/actuation 1 inh inhalation Q24H #30 ea 12/15/22 12/16/22 Unknown Rx blister powder for inhalation (Incruse Ellipta) Allergies Allergy/AdvReac Type Severity Reaction Status Date / Time No Known Allergies Allergy Verified 12/15/22 14:38 Current Medications Generic Name Dose Route Start Last Admin Trade Name Freq PRN Reason Stop Dose Admin Albuterol/Ipratropium 3 ml 12/15/22 21:23 12/16/22 03:57 Ipratropium-Albuterol 3 Ml Neb INHALATION 3 ml Q6H PRN Administration SHORTNESS OF BREATH Iron Sucrose 200 mg/ Sodium 110 mls @ 220 mls/hr 12/16/22 08:00 12/16/22 09:35 Chloride IV 12/20/22 08:29 Infused Q24H EDUARDO Infusion Pantoprazole Sodium 40 mg 12/16/22 09:00 12/16/22 08:48 Pantoprazole 40 Mg Sdv IVP 40 mg BID EDUARDO Administration Sucralfate 1 gm 12/16/22 08:00 12/16/22 08:48 Sucralfate 1 Gm Tablet PO 1 gm Q12H EDUARDO Administration PFSH Acute PFSH: Medical History Adult onset hypothyroidism Anxiety and depression Dyslipidemia Enrolled in chronic care management Essential hypertension Heart block AV second degree History of pacemaker Pacemaker Tobacco abuse Vitamin D deficiency Surgical History History of cholecystectomy History of colonoscopy History of gastric bypass History of laparoscopic appendectomy History of partial surgical removal of colon History of right hip replacement History of thyroidectomy Family History Other Cancer Diabetes Hypertension Social History Smoking and tobacco status: current every day smoker cigarettes Packs smoked per day: 1 [ Other cigarette details: started gummies / process of quitting] Second hand smoke exposure: Yes Smoking risk assessment/counseling performed?: No Alcohol intake: current Alcohol intake frequency: holidays/special occasions only Alcohol type: beer and hard liquor Desire information about alcohol rehabilitation?: No Counseling given: No Substance/Drug Use: never Desire information about substance/drug rehabilitation?: No Counseling given: No Adopted: No Caregiver/support person: No Lives independently: Yes Household members: none Housing: House Marital status: Number of children: 2 Current occupational status: retired Do you think of yourself as: Straight/Heterosexual Current gender identity: Female Vitals/I&O/Wt Last Vital Signs Temp 98 F 12/16/22 13:20 Pulse 70 12/16/22 10:00 Resp 18 12/16/22 10:00 BP 134/101 12/16/22 10:00 Pulse Ox 92 12/16/22 09:30 O2 Del Method Nasal Cannula 12/16/22 10:00 O2 Flow Rate 3 12/16/22 10:00 FiO2 30 12/16/22 09:00 12/15/22 12/16/22 12/16/22 22:59 06:59 14:59 Intake Total 120 / 120 700 / 820 140 / 140 Output Total 850 / 850 Balance 120 / 120 700 / 820 -710 / -710 Weight last 48 hrs Weight 150 lb Weight 150 lb Physical Exam Narrative: General : Patient is well developed , no acute distress, oriented x3 Head : Normal cephalic, a-traumatic. Ears : Pinnae and external canal are normal. Hearing is normal. Eyes : PERRLA, Sclera and injection are normal. No conjunctival discharge. Nose : Mucous membranes are without erythema. Throat : buccal mucosa is normal, gums are without significant recession or hypertrophy. Lungs : Equal chest rise bilaterally, no use of accessory muscles, trachea is midline. Cor : Rate and rhythm are normal. Abdomen : Soft, ND, NT, no g/r/m Extremities : No edema, no cyanosis or clubbing, dorsalis pedis pulses are present bilaterally, non-tender to palpation of calves. Upper extremities are normal bilaterally. Back : non-tender to palpation, no CVA tenderness. Neuro : CN II - XII intact, Upper and lower extremities have equal and full strength Urinary Catheter Management: Cheung: Cath Placed During This Visit: yes Reason for Continuing Indwelling Catheter: Accurate Measurement of Urinary Output in Critically Ill Patients Urinary Catheter Date of Insertion: 12/16/22 Urinary Catheter Time of Insertion: 05:00 Data 12/16/22 06:15 12/16/22 06:15 Micro: Microbiology 12/16/22 08:30 Blood Culture - Preliminary Blood SPECIMEN COLLECTED 12/16/22 08:30 Blood Culture - Preliminary Blood SPECIMEN COLLECTED A&P Assessment and plan (1) Severe anemia: Plan EGD The risks and benefits of the procedure, including bleeding, infection, intestinal perforation requiring surgery, missed lesion were explained to the patient. The patient is understanding of the risks and wishes to proceed. Coding Level of Care Code 99937 Diagnoses Severe anemia D64.9
--- NOTE | 2022-12-16 15:45 | ANE.PACU2 ---
Inpatient post-anesthesia follow up: Airway intact: Yes Vital signs: Temperature 97.3 F Pulse Rate 78 Respiratory Rate 17 Blood Pressure 120/52 Pulse Oximetry 97 Oxygen Delivery Me thod Nasal Cannula Oxygen Flow Rate 4 Fraction of Inspir ed Oxygen 30 Hydration adequate: Yes Nausea and vomiting: No Pain level: 1 Mental status: Baseline
--- NOTE | 2022-12-16 15:49 | ECG_ITS ---
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 Measurements Intervals [place] Rate: 73 P: 147 MN: 172 QRS: -53 QRSD: 176 T: 108 QT: 516 QTc: 571 Interpretive Statements ELECTRONIC ATRIAL PACEMAKER ELECTRONIC VENTRICULAR PACEMAKER ABNORMAL RHYTHM ECG Compared to ECG 12/16/2022 10:47:43 No significant changes Electronically Signed On 12-16-2022 18:58:55 CDT by Mehreen Thurman M.D. [id number]
--- NOTE | 2022-12-16 16:00 | PC.NURSE ---
Pt ambulated through unit, 2 laps, without difficulty.
--- NOTE | 2022-12-16 16:59 | P.PN_ITS ---
Subjective Subjective: - Patient was seen early this morning, currently on BiPAP, 30%, does report shortness of breath, denies a history of CAD, her shortness of breath improved with Lasix -She does report a history of smoking, quit 1 week ago -Spoke to Dr. Byrne, patient had large fluid bolus in the esophagus, the stomach, -With her shortness of breath, potentially related to aspiration pneumonia, will start her on Zosyn -Has evidence of iron deficient anemia and started on IV iron -Recheck hemoglobin in the evening -Patient was reexamined in the evening time, she is resting more comfortably, denies any chest pain, she feels a bit nauseous, denies any shortness of breath Vitals/I&O/Wt Last Vital Signs Temp 98 F 12/16/22 13:20 Pulse 77 12/16/22 16:30 Resp 20 H 12/16/22 16:30 BP 132/61 12/16/22 16:30 Pulse Ox 97 12/16/22 16:30 O2 Del Method Nasal Cannula 12/16/22 16:30 O2 Flow Rate 3 12/16/22 16:30 FiO2 30 12/16/22 09:00 12/16/22 12/16/22 12/16/22 06:59 14:59 22:59 Intake Total 700 / 820 140 / 140 Output Total 2600 / 2600 Balance 700 / 820 -2460 / -2460 Weight last 48 hrs Weight 68.039 kg Weight 68.039 kg Physical Exam Const: COMMON NORMALS: no acute distress and patient oriented x3 HENMT: COMMON NORMALS: normocephalic HEAD & SCALP: normocephalic Resp: COMMON NORMALS: normal respiratory effort, No retractions and No use of accessory muscles AUSCULTATION: crackles and wheezes Cardio: COMMON NORMALS: regular rate, regular rhythm, S1 normal heart sound present and S2 normal heart sound present RATE: regular rate RHYTHM: regular rhythm HEART SOUNDS: S1 normal heart sound present and S2 normal heart sound present GI: COMMON NORMALS: Normal to inspection, nondistended, normoactive bowel sounds present and non-tender Extremity: COMMON NORMALS: no pedal edema Neuro: COMMON NORMALS: patient oriented x3 Psych: COMMON NORMALS: mental status grossly normal Urinary Catheter Management: Cheung: Cath Placed During This Visit: yes Reason for Continuing Indwelling Catheter: Accurate Measurement of Urinary Output in Critically Ill Patients Urinary Catheter Date of Insertion: 12/16/22 Urinary Catheter Time of Insertion: 05:00 Data 12/16/22 06:15 12/16/22 06:15 Micro: Microbiology 12/16/22 08:30 Blood Culture - Preliminary Blood SPECIMEN COLLECTED 12/16/22 08:30 Blood Culture - Preliminary Blood SPECIMEN COLLECTED A&P Assessment and plan (1) Chronic anemia: (2) Heart block AV second degree: (3) Dietary iron deficiency: (4) Generalized muscle ache: (5) Enrolled in chronic care management: (6) Pacemaker: (7) Essential hypertension: (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: (9) Adult onset hypothyroidism: (10) Microcytic anemia: (11) Severe anemia: (12) Aspiration pneumonia: (13) Iron deficiency anemia: (14) CHF exacerbation: (15) NSTEMI (non-ST elevated myocardial infarction): (16) Duodenal ulcer: (17) GI (gastrointestinal bleed): (18) Food impaction of esophagus: Plan GI bleeding secondary to nsaid and xarelto With evidence of duodenal ulcers on egd Acute on chronic microcytic anemia Current iron deficiency 2 unit PRBC Hemodynamic stable Symptomatic anemia with pale complexion, shortness of breath and fatigue History of GI cancer in the family, patient had precancerous polyps removed 16 years ago, no recent GI bleed noticed by the patient Dr. Byrne consulted Status post EGD, findings of duodenal ulcer, food bolus in esophagus Last dose of rivaroxaban was on 12/14, she did not take her medication today we will discuss with surgery when to resume COPD: No acute exacerbation She quit smoking 1 week ago Patient is stating that she noticed mild hemoptysis but nothing significant No previous history of lung mass or significant nodule, she may qualify for low- dose CT scan for lung cancer screening Food impaction esophagus, stomach Aspiration pneumonia, with fluid bolus in esophagus, continue Zosyn CHF exacerbation, elevated BNP, 1 dose Lasix today, cardiac echo Hypertension: Hold chlorthalidone and antihypertensive regimen Hypothyroid continue levothyroxine NSTEMI -No chest pain complaints -Serial EKGs, serial troponins, telemetry monitoring -Cardiac echo Hypokalemia: Potassium repleted DVT prophylaxis: SCDs A-fib status post pacemaker hold anticoagulating agent Continue clear liquids Full code Attestations Medical Necessity Statement*: Patient requires hospitalization due to iron deficiency anemia, GI bleed, aspiration ammonia, CHF, NSTEMI Diagnoses Chronic anemia D64.9 Heart block AV second degree I44.1 Dietary iron deficiency E61.1 Generalized muscle ache M79.10 Enrolled in chronic care management Z78.9 Pacemaker Z95.0 Essential hypertension I10 COPD (chronic obstructive pulmonary disease) with emphysema J43.9 Adult onset hypothyroidism E03.8 Microcytic anemia D50.9 Severe anemia D64.9 Aspiration pneumonia J69.0 Iron deficiency anemia D50.9 CHF exacerbation I50.9 NSTEMI (non-ST elevated myocardial infarction) I21.4 Duodenal ulcer K26.9 GI (gastrointestinal bleed) K92.2 Food impaction of esophagus T18.128A
[2022-12-16] MEDS: piperacillin-tazobactam 3.375 GM in sodium chloride 0.9% (plus) 50 ML IV (17:47)
[2022-12-16] MEDS: acetaminophen 500 mg Tablet PO (17:48)
[2022-12-16] MEDS: gabapentin 400 mg Capsule 800 MG PO (17:48)
[2022-12-16] MEDS: duloxetine 60 mg Capsule PO (17:48)
--- NOTE | 2022-12-16 18:25 | PC.NURSE ---
Shift summary: Pt has rested in bed throughout the shift. She was worried about getting out of bed, afraid it was going to bother her breathing again. We discussed purse lip breathing , Lasix and the amount of urine output she had today. She started the shift off on BiPap at 30%, now she is on 3lpm/NC. Lungs are diminished with improved air movement this evening. She went to GI lab for EGD today , tolerated that well. She was started on clear liquid diet this evening. Several Home meds restarted tis evening, see MAR. She did complain of H/A this evening, acetaminophen admin. She did get up to BSC this afternoon, afraid and anxious, but respiratory núñez tolerated very well. Small firm BM noted, sent to lab for occult. Second dose of Lasix admin this am. Urine output of 2750 ml this shift.
[2022-12-16 18:42] LABS: Basophils # 0.1 10^3/uL (0.0-0.1); Basophils % 0.4 %; Eosinophils # 0.1 10^3/uL (0.0-0.8); Eosinophils % 0.5 %; Hematocrit 32.7 % (37.0-47.0); Hemoglobin 9.4 g/dL (11.5-15.3); Lymphocytes # 0.6 10^3/uL (0.8-4.8); Lymphocytes % 4.9 %; Mean Corpuscular HGB Conc 28.7 g/dL (30.0-36.0); Mean Corpuscular Hemoglobin 23.5 pg (28.0-34.0); Mean Corpuscular Volume 81.8 fl (81-99); Mean Platelet Volume 11.3 fL (7.4-10.4); Monocytes # 0.5 10^3/uL (0.2-0.9); Monocytes % 4.1 %; Neutrophils # 10.16 10^3/uL (1.8-7.7); Neutrophils % 89.7 %; Nucleated Red Blood Cells % 0.4 %; Platelet Count 234 10^3/cmm (130-400); Red Cell Distribution Width 20.6 % (12.1-15.1); White Blood Count 11.4 10^3/uL (4.0-10.0)
[2022-12-17] VITALS (18 sets, daily range): BP systolic 111–133; BP diastolic 51–73; PULSE 71–91; RESP 13–96; TEMP 36.3–37.2; O2SAT 88–98; BMI 26.5
[2022-12-17] MEDS: piperacillin-tazobactam 3.375 GM in sodium chloride 0.9% (plus) 50 ML IV ×3 (01:13→17:28)
[2022-12-17 04:32] LABS: Basophils # 0.1 10^3/uL (0.0-0.1); Basophils % 1.2 %; Eosinophils # 0.2 10^3/uL (0.0-0.8); Eosinophils % 2.7 %; Hematocrit 29.7 % (37.0-47.0); Hemoglobin 8.3 g/dL (11.5-15.3); Lymphocytes # 0.8 10^3/uL (0.8-4.8); Lymphocytes % 10.4 %; Mean Corpuscular HGB Conc 27.9 g/dL (30.0-36.0); Mean Corpuscular Hemoglobin 22.9 pg (28.0-34.0); Monocytes # 0.6 10^3/uL (0.2-0.9); Monocytes % 8.1 %; Neutrophils # 5.63 10^3/uL (1.8-7.7); Neutrophils % 77.1 %; Nucleated Red Blood Cells # 0.1 /100WBC; Nucleated Red Blood Cells % 0.8 %; Platelet Count 234 10^3/cmm (130-400); Red Blood Count 3.62 10^6/uL (4.1-5.3); Red Cell Distribution Width 20.7 % (12.1-15.1); White Blood Count 7.3 10^3/uL (4.0-10.0)
[2022-12-17 04:48] LABS: Anion Gap 14.6 (5-19); Blood Urea Nitrogen 15 mg/dL (8-23); Carbon Dioxide 29 mmol/L (22-29); Chloride 100 mmol/L (98-107); Glucose 87 mg/dL (65-115); Osmolality Calculated 292 mOsm/kg (285-295); Sodium 141 mmol/L (136-145)
[2022-12-17 05:02] LABS: Potassium 2.6 mmol/L (3.5-5.1)
[2022-12-17] MEDS: lidocaine 1% 5 ML in potassium chloride premix 100 ML 26.25 ML IV ×2 (05:33→09:51)
--- NOTE | 2022-12-17 07:58 | USCV_ITS ---
Sobia Mercer Age: 77 Gender: F : 1945 Exam Date: 12/17/2022 14:35 Ordering Phys: Jesus Lara MD Technologist: DARSHANA Exam Location: [place] Indication: chf BP: / HR: Rhythm: Sinus Technical Quality: Poor MEASUREMENTS (Male / Female) Normal Values 2D ECHO LV Diastolic Diameter PLAX 6.4 cm 4.2 - 5.9 / 3.9 - 5.3 cm LV Systolic Diameter PLAX 5.0 cm IVS Diastolic Thickness 0.7 cm 0.6 - 1.0 / 0.6 - 0.9 cm IVS Systolic Thickness 1.1 cm LVPW Diastolic Thickness 0.7 cm 0.6 - 1.0 / 0.6 - 0.9 cm LVPW Systolic Thickness 1.8 cm LVOT Diameter 1.6 cm LV Ejection Fraction 2D Teich 44.2 % LV Ejection Fraction MOD 2C 26.5 % LV Ejection Fraction 2C AL 24.0 % LA Diameter 4.2 cm M-MODE Aortic Annulus Diameter 2.9 cm LA Ao Ratio MM 1.9 MV E Point Septal Separation 0.5 cm DOPPLER MV Area PHT 4.4 cm squared Mitral E to A Ratio 0.9 MV E' Velocity 77.5 cm/s Mitral E to MV E' Ratio 12.3 Mitral E to LV E' Lateral Ratio 11.3 Mitral E to LV E' Septal Ratio 13.6 TV Peak E Velocity 87.0 cm/s FINDINGS Left Ventricle The ventricle is poorly seen. It is likely normal in size. There is at least lower limit of normal left ventricular function. No obvious wall motion disturbances. Diastolic function cannot be determined. Abnormal septal motion consistent with pacemaker. Right Ventricle Catheter/pacemaker wire visualized in the right ventricle. Normal right ventricular size and systolic function. Right Atrium The right atrium is normal in size. Left Atrium Moderately increased left atrial size. Mitral Valve Structurally normal mitral valve. Severe mitral valve regurgitation. Aortic Valve Structurally normal aortic valve without significant sclerosis or stenosis. There is no aortic regurgitation. Tricuspid Valve Tricuspid valve not well visualized. No tricuspid valve regurgitation. Pulmonic Valve Pulmonic valve not well visualized. Pericardium Normal pericardium without effusion. Aorta Normal ascending aorta dimension. IVC Inferior vena cava not visualized. CONCLUSIONS The ventricle is poorly seen. It is likely normal in size. There is at least lower limit of normal left ventricular function. No obvious wall motion disturbances. Diastolic function cannot be determined. Abnormal septal motion consistent with pacemaker. Catheter/pacemaker wire visualized in the right ventricle. Normal right ventricular size and systolic function. Moderately increased left atrial size. Structurally normal mitral valve. Severe mitral valve regurgitation. There are no prior echocardiogram studies to compare. Dr. Jake Gandhi MD (Electronically Signed) Final Date: 18 December 2022 09:13 S
[2022-12-17] MEDS: atorvastatin 40 mg Tablet 80 MG PO (08:21)
[2022-12-17] MEDS: duloxetine 60 mg Capsule PO ×2 (08:21→17:28)
[2022-12-17] MEDS: levothyroxine 88 mcg Tablet PO (08:21)
[2022-12-17] MEDS: gabapentin 400 mg Capsule 800 MG PO ×2 (08:22→17:27)
[2022-12-17] MEDS: sucralfate 1 gm Tablet PO ×2 (08:23→20:42)
[2022-12-17] MEDS: pantoprazole 40 mg SDV IVP ×2 (08:23→17:28)
[2022-12-17] MEDS: iron sucrose 200 MG in sodium chloride 0.9% (100 ml) 100 ML IV (09:13)
[2022-12-17 09:45] LABS: NT Pro B Type Natriuretic Pept 1636 pg/mL (0-450)
[2022-12-17] MEDS: rivaroxaban 10 mg Tablet 2.5 MG PO ×2 (09:51→17:28)
--- NOTE | 2022-12-17 11:14 | XRR_ITS ---
PROCEDURE INFORMATION: Exam: XR Chest Exam date and time: 12/17/2022 11:28 AM Age: 77 years old Clinical indication: Shortness of breath; Additional info: SOB TECHNIQUE: Imaging protocol: Radiologic exam of the chest. Views: 1 view. COMPARISON: CR (CHEST, ) 12/16/2022 4:59 AM FINDINGS: Tubes, catheters and devices: There is a dual-lead AICD with leads positioned in the right atrium and right ventricle. Lungs: There is opacification and volume loss in the infrahilar right lung. Left lung is clear. Pleural spaces: The right lateral costophrenic sulcus is blunted. Heart/Mediastinum: There is mild enlargement of the cardiac silhouette. The right heart border is obscured. Bones/joints: There is moderate degenerative disease at both shoulders. Elevation of the humeral heads relative to the glenoids is suggests chronic rotator cuff tear arthropathy. XR/XR chest 1V portable [id number] IMPRESSION: 1. Markedly decreased bilateral pulmonary opacity since yesterday suggests resolving pulmonary edema. 2. Persistent opacity in the infrahilar region on the right may be due to right middle lobe atelectasis or consolidation. 3. Blunted right lateral costophrenic sulcus suggests small right pleural effusion, decreased since 12/16/2022.
[2022-12-17 12:56] LABS: Hematocrit 31.4 % (37.0-47.0); Hemoglobin 8.9 g/dL (11.5-15.3)
--- NOTE | 2022-12-17 14:11 | PC.NURSE ---
report called and transfered to room 106 at this time ..
[2022-12-17] MEDS: potassium chloride ER 20 mEq Tablet 40 MEQ PO (15:09)
[2022-12-17] MEDS: FUROsemide 10 mg/mL SDV 4mL 40 MG IVP (15:09)
--- NOTE | 2022-12-17 16:29 | P.PN_ITS ---
Subjective Subjective: Patient was seen this morning, currently on 3 L, denies any lightheadedness, dizziness, no bloody or black stools, Vitals/I&O/Wt Last Vital Signs Temp 98.5 F 12/17/22 10:00 Pulse 81 12/17/22 14:08 Resp 18 12/17/22 14:08 BP 118/70 12/17/22 14:08 Pulse Ox 92 12/17/22 14:08 O2 Del Method Nasal Cannula 12/17/22 08:28 O2 Flow Rate 4 12/17/22 08:28 FiO2 30 12/17/22 14:00 12/17/22 12/17/22 12/17/22 06:59 14:59 22:59 Intake Total 130 / 300 865 / 865 105 / 970 Output Total 375 / 3125 250 / 250 Balance -245 / -2825 615 / 615 105 / 720 Weight last 48 hrs Weight 68.039 kg Weight 68.039 kg Weight 68.039 kg Physical Exam Const: COMMON NORMALS: no acute distress and patient oriented x3 Resp: COMMON NORMALS: normal respiratory effort, No retractions and No use of accessory muscles AUSCULTATION: crackles Cardio: COMMON NORMALS: regular rate, regular rhythm, S1 normal heart sound present and S2 normal heart sound present RATE: regular rate RHYTHM: regular rhythm HEART SOUNDS: S1 normal heart sound present and S2 normal heart sound present GI: COMMON NORMALS: Normal to inspection, nondistended, normoactive bowel soun ds present and non-tender Extremity: COMMON NORMALS: no pedal edema Neuro: COMMON NORMALS: patient oriented x3 Psych: COMMON NORMALS: mental status grossly normal Urinary Catheter Management: Cheung: Cath Placed During This Visit: yes Reason for Continuing Indwelling Catheter: Accurate Measurement of Urinary Output in Critically Ill Patients Urinary Catheter Date of Insertion: 12/16/22 Urinary Catheter Time of Insertion: 05:00 Data 12/17/22 12:31 12/17/22 03:34 Micro: Microbiology 12/16/22 08:30 Blood Culture - Preliminary Blood NEGATIVE TO DATE 12/16/22 08:30 Blood Culture - Preliminary Blood NEGATIVE TO DATE 12/16/22 15:00 Occult Blood (FIT) - Final Stool Routine Collection A&P Assessment and plan (1) Chronic anemia: (2) Heart block AV second degree: (3) Dietary iron deficiency: (4) Generalized muscle ache: (5) Enrolled in chronic care management: (6) Pacemaker: (7) Essential hypertension: (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: (9) Adult onset hypothyroidism: (10) Microcytic anemia: (11) Severe anemia: (12) Aspiration pneumonia: (13) Iron deficiency anemia: (14) CHF exacerbation: (15) NSTEMI (non-ST elevated myocardial infarction): (16) Duodenal ulcer: (17) GI (gastrointestinal bleed): (18) Food impaction of esophagus: (19) Pulmonary edema: Plan GI bleeding secondary to nsaid and xarelto With evidence of is found to have inflammation in the jejunum, and duodenum, new mucosal bleeding Acute on chronic microcytic anemia Current iron deficiency 2 unit PRBC Day 2 of 5 IV Venofer fair Hemodynamic stable Symptomatic anemia with pale complexion, shortness of breath and fatigue History of GI cancer in the family, patient had precancerous polyps removed 16 years ago, no recent GI bleed noticed by the patient Dr. Byrne consulted Status post EGD, as above Will resume Eliquis at low-dose, monitor hemoglobin closely, monitor for bloody black stools COPD: No acute exacerbation She quit smoking 1 week ago Patient is stating that she noticed mild hemoptysis but nothing significant No previous history of lung mass or significant nodule, she may qualify for low- dose CT scan for lung cancer screening Food impaction lower esophagus, and stomach, patient reports past medical history of bezoar Aspiration pneumonia, with fluid bolus in esophagus, continue Zosyn CHF exacerbation, pulmonary edema, elevated BNP, negative 1.2L, 1 dose Lasix today, cardiac echo pedning Hypertension: Hold chlorthalidone and antihypertensive regimen Hypothyroid continue levothyroxine NSTEMI -No chest pain complaints -Serial EKGs, serial troponins, telemetry monitoring -Cardiac echo Hypokalemia: Potassium repleted DVT prophylaxis: SCDs , xarelto A-fib status post pacemaker Continue cGi soft Full code Attestations Medical Necessity Statement*: Patient requires hospitalization for GI bleeding, anemia, resuming Xarelto requiring inpatient monitoring of hemoglobin, fluid overload pulm edema requiring Lasix, moved to CSU and High MDM includes number and complexity of problems actively addressed during encounter, amount and/or complexity of data reviewed/ordered and described risk of complication, morbidity or mortality of management as documented Diagnoses Chronic anemia D64.9 Heart block AV second degree I44.1 Dietary iron deficiency E61.1 Generalized muscle ache M79.10 Enrolled in chronic care management Z78.9 Pacemaker Z95.0 Essential hypertension I10 COPD (chronic obstructive pulmonary disease) with emphysema J43.9 Adult onset hypothyroidism E03.8 Microcytic anemia D50.9 Severe anemia D64.9 Aspiration pneumonia J69.0 Iron deficiency anemia D50.9 CHF exacerbation I50.9 NSTEMI (non-ST elevated myocardial infarction) I21.4 Duodenal ulcer K26.9 GI (gastrointestinal bleed) K92.2 Food impaction of esophagus T18.128A Pulmonary edema J81.1
[2022-12-17 18:52] LABS: Hemoglobin 9.9 g/dL (11.5-15.3)
[2022-12-18] VITALS (9 sets, daily range): BP systolic 98–132; BP diastolic 59–65; PULSE 67–87; RESP 14–22; TEMP 36.7–36.9; O2SAT 88–96
[2022-12-18] MEDS: piperacillin-tazobactam 3.375 GM in sodium chloride 0.9% (plus) 50 ML IV ×2 (00:23→09:45)
[2022-12-18 05:23] LABS: Basophils # 0.1 10^3/uL (0.0-0.1); Basophils % 1.2 %; Eosinophils # 0.2 10^3/uL (0.0-0.8); Eosinophils % 2.8 %; Hematocrit 31.9 % (37.0-47.0); Hemoglobin 8.9 g/dL (11.5-15.3); Lymphocytes # 1.2 10^3/uL (0.8-4.8); Lymphocytes % 15.7 %; Mean Corpuscular HGB Conc 27.9 g/dL (30.0-36.0); Mean Corpuscular Volume 82.4 fl (81-99); Mean Platelet Volume 11.2 fL (7.4-10.4); Monocytes # 0.9 10^3/uL (0.2-0.9); Monocytes % 11.5 %; Neutrophils # 5.04 10^3/uL (1.8-7.7); Nucleated Red Blood Cells % 0.5 %; Platelet Count 230 10^3/cmm (130-400); Red Blood Count 3.87 10^6/uL (4.1-5.3); Red Cell Distribution Width 21.2 % (12.1-15.1); White Blood Count 7.4 10^3/uL (4.0-10.0)
[2022-12-18 05:51] LABS: Anion Gap 16.3 (5-19); Blood Urea Nitrogen 16 mg/dL (8-23); Calcium 8.2 mg/dL (8.5-10.5); Carbon Dioxide 31 mmol/L (22-29); Chloride 99 mmol/L (98-107); Glucose 105 mg/dL (65-115); Magnesium 1.8 mg/dL (1.7-2.3); NT Pro B Type Natriuretic Pept 1172 pg/mL (0-450); Osmolality Calculated 298 mOsm/kg (285-295); Potassium 3.3 mmol/L (3.5-5.1); Sodium 143 mmol/L (136-145)
--- NOTE | 2022-12-18 09:17 | PC.SOCIAL ---
IMM update IMM updated with patient. Verbalized an understanding. Copy pg 2 provided. Initialled, dated, timed, and placed in chart.
[2022-12-18] MEDS: lidocaine 1% 5 ML in potassium chloride premix 100 ML 26.25 ML IV (09:46)
[2022-12-18] MEDS: pantoprazole 40 mg SDV IVP (09:47)
[2022-12-18] MEDS: FUROsemide 10 mg/mL SDV 4mL 40 MG IVP (09:47)
[2022-12-18] MEDS: sucralfate 1 gm Tablet PO ×2 (09:47→16:40)
[2022-12-18] MEDS: rivaroxaban 10 mg Tablet 2.5 MG PO ×2 (09:48→16:41)
[2022-12-18] MEDS: duloxetine 60 mg Capsule PO ×2 (09:48→16:40)
[2022-12-18] MEDS: gabapentin 400 mg Capsule 800 MG PO ×2 (09:48→16:40)
[2022-12-18] MEDS: atorvastatin 40 mg Tablet 80 MG PO (09:48)
[2022-12-18] MEDS: levothyroxine 88 mcg Tablet PO (09:48)
[2022-12-18] MEDS: lidocaine 1% INJ 10 mL (per mL) 5 ML INJECTION (09:49)
[2022-12-18] MEDS: iron sucrose 200 MG in sodium chloride 0.9% (100 ml) 100 ML IV (09:51)
--- NOTE | 2022-12-18 12:32 | P.DS_ITS ---
Discharge Providers Date of Admission: 12/15/22 20:32 Date of Discharge: December 18, 2022 Attending Provider at Admission: Payam Rivas MD Attending Provider at Discharge: Jesus Lara MD Primary Care Provider: IRINEO Marie Diagnoses at Discharge Discharge Diagnosis (1) Chronic anemia: Status: Acute (2) Heart block AV second degree: Status: Acute (3) Dietary iron deficiency: Status: Chronic (4) Generalized muscle ache: Status: Chronic (5) Enrolled in chronic care management: Status: Acute (6) Pacemaker: Status: Chronic (7) Essential hypertension: Status: Chronic (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: Status: Chronic (9) Adult onset hypothyroidism: Status: Chronic (10) Microcytic anemia: Status: Acute (11) Severe anemia: Status: Acute (12) Aspiration pneumonia: Status: Acute (13) Iron deficiency anemia: Status: Acute (14) CHF exacerbation: Status: Acute (15) NSTEMI (non-ST elevated myocardial infarction): Status: Acute (16) Duodenal ulcer: Status: Acute (17) GI (gastrointestinal bleed): Status: Acute (18) Food impaction of esophagus: Status: Acute (19) Pulmonary edema: Status: Acute Reason for Visit Reason for Visit: physician sent for, anemia Hospital Course Hospital Course Sobia Mercer is a 77 year old female with history of GI cancer, patient had polypectomy in the past roughly 16 years ago, she is on rivaroxaban for A-fib, she did not take her dose on 12/15, presented today from the clinic for severe anemia.? Patient is stating that she has been weak and lethargic for last few weeks she has not noticed any hematuria, blood in vomiting, blood in stool, she has not noticed change in stool color, patient is stating that she has a habit of checking stool color, she has noticed blood in sputum once in a while which is minimal.? She recently quit smoking a week ago.? She is denying chest pain, diarrhea.? Abdominal pain. In the ER 2 units PRBC requested for severe anemia, FOBT requested, rectal exam negative for bleeding Please note, patient is stating that she is taking ibuprofen on daily basis for her hip pain no previous history of GI ulcers Patient was admitted to [facility] for GI bleed likely secondary to NSAID use, and Xarelto, underwent EGD found to have inflammation of the jejunum and duodenum no evidence of acute bleeding, transfused 2 units PRBC, tonics, Carafate monitored as inpatient, transitioned back to Xarelto, no recurrent bloody or black stools, no lightheadedness, hemoglobin remained stable at 8.9, discharged home. Patient will continue Xarelto low-dose at 2.5 mg twice daily, Protonix, Carafate, if she were to have any lightheadedness or dizziness or bloody or black stools to go to emergency room. See her primary care provider in 24 hours for recheck hemoglobin if her hemoglobin drops below 7 she might require further transfusion permanent stoppage of her Xarelto. Patient was also found to have a food impaction of her esophagus and upper stomach, found on EGD and which was cleared. She also had an aspiration pneumonia likely sec to fluid bolus, managed with antibiotic therapy, discharged on Augmentin. She was also found to have CHF exacerbation, pulmonary edema during hospitalization likely secondary to fluid overload, required IV diuresis, -2 L, discharged on Lasix therapy. Follow-up with general surgery for biopsy results. Follow-up with Dr. Fernandez. She was also found to have iron deficiency anemia, she will be discharged with 2 more doses of IV Venofer as outpatient. She quit smoking roughly a week ago, had extensive discussion with her about continuing to cessation from smoking, morbidity and mortality associate with COPD, associated with gastric ulcers, gastric cancer, she voiced understanding, all questions answered Physical Exam Const: COMMON NORMALS: no acute distress and patient oriented x3 Resp: COMMON NORMALS: normal respiratory effort, No retractions, No use of accessory muscles and clear to auscultation bilaterally AUSCULTATION: clear to auscultation bilaterally Cardio: COMMON NORMALS: regular rate, regular rhythm, S1 normal heart sound present and S2 normal heart sound present RATE: regular rate RHYTHM: regular rhythm HEART SOUNDS: S1 normal heart sound present and S2 normal heart sound present GI: COMMON NORMALS: Normal to inspection, nondistended, normoactive bowel sounds present and non-tender Extremity: COMMON NORMALS: no pedal edema Neuro: COMMON NORMALS: patient oriented x3 Psych: COMMON NORMALS: mental status grossly normal Urinary Catheter Management: Cheung: Cath Placed During This Visit: yes Reason for Continuing Indwelling Catheter: Accurate Measurement of Urinary Ou tput in Critically Ill Patients Urinary Catheter Date of Insertion: 12/16/22 Urinary Catheter Time of Insertion: 05:00 Discharge Data Studies Completed and Pending Completed Studies During Hospitalization Category Date Time Status CXRP [XR chest 1V portable [id number]] Stat Exams 12/16/22 04:12 Completed XR chest 1V portable [id number] Routine Exams 12/17/22 11:14 Completed CV. echo complete* [id number] Routine Ultrasound 12/17/22 07:58 Completed Pending at discharge Category Date Time Status Basic Metabolic Panel AM LABS Lab 12/19/22 04:00 Ordered Blood Culture Stat Lab 12/16/22 08:30 Results Complete Blood Count w/Auto AM LABS Lab 12/19/22 04:00 Ordered Hemoglobin and Hematocrit Stat Lab 12/18/22 12:25 Ordered Magnesium AM LABS Lab 12/19/22 04:00 Ordered Magnesium AM LABS Lab 12/20/22 04:00 Ordered NT Pro B Type Natriuretic Pept QAM Lab 12/19/22 06:00 Ordered NT Pro B Type Natriuretic Pept QAM Lab 12/20/22 06:00 Ordered Sputum Culture and Gram Stain Stat Lab 12/16/22 07:59 Uncollected Pathology: Surgical [PTH] Routine Pth 12/16/22 15:24 Received Radiology Impressions Chest X-Ray 12/17/22 11:14 IMPRESSION: 1. Markedly decreased bilateral pulmonary opacity since yesterday suggests resolving pulmonary edema. 2. Persistent opacity in the infrahilar region on the right may be due to right middle lobe atelectasis or consolidation. 3. Blunted right lateral costophrenic sulcus suggests small right pleural effusion, decreased since 12/16/2022. Laboratory Results WBC 7.4 10^3/uL (4.0-10.0) 12/18/22 04:42 RBC 3.87 10^6/uL (4.1-5.3) L 12/18/22 04:42 Hgb 8.9 g/dL (11.5-15.3) L 12/18/22 04:42 Hct 31.9 % (37.0-47.0) L 12/18/22 04:42 MCV 82.4 fl (81-99) 12/18/22 04:42 MCH 23.0 pg (28.0-34.0) L 12/18/22 04:42 MCHC 27.9 g/dL (30.0-36.0) L 12/18/22 04:42 RDW 21.2 % (12.1-15.1) H 12/18/22 04:42 Plt Count 230 10^3/cmm (130-400) 12/18/22 04:42 MPV 11.2 fL (7.4-10.4) H 12/18/22 04:42 Neut % (Auto) 68.0 % 12/18/22 04:42 Lymph % (Auto) 15.7 % 12/18/22 04:42 [place] % (Auto) 11.5 % 12/18/22 04:42 Eos % (Auto) 2.8 % 12/18/22 04:42 Baso % (Auto) 1.2 % 12/18/22 04:42 Reticulocyte % (Auto) 4.7 % (0.5-2.0) H 12/15/22 18:44 Neut # (Auto) 5.04 10^3/uL (1.8-7.7) 12/18/22 04:42 Lymph # (Auto) 1.2 10^3/uL (0.8-4.8) 12/18/22 04:42 [place] # (Auto) 0.9 10^3/uL (0.2-0.9) 12/18/22 04:42 Eos # (Auto) 0.2 10^3/uL (0.0-0.8) 12/18/22 04:42 Baso # (Auto) 0.1 10^3/uL (0.0-0.1) 12/18/22 04:42 Nucleated RBC % (auto) 0.5 % 12/18/22 04:42 Nucleated RBCs # 0.0 /100WBC 12/18/22 04:42 D-Dimer 0.94 ug/mIFEU (0-0.59) H 12/15/22 18:46 Sodium 143 mmol/L (136-145) 12/18/22 04:42 Potassium 3.3 mmol/L (3.5-5.1) L 12/18/22 04:42 Chloride 99 mmol/L (98-107) 12/18/22 04:42 Carbon Dioxide 31 mmol/L (22-29) H 12/18/22 04:42 Anion Gap 16.3 (5-19) 12/18/22 04:42 BUN 16 mg/dL (8-23) 12/18/22 04:42 Creatinine 0.8 mg/dL (0.5-0.9) 12/18/22 04:42 GFR Calculation Not Reportable 12/18/22 04:42 Glucose 105 mg/dL (65-115) 12/18/22 04:42 Calculated Osmolality 298 mOsm/kg (285-295) H 12/18/22 04:42 Calcium 8.2 mg/dL (8.5-10.5) L 12/18/22 04:42 Phosphorus 5.2 mg/dL (2.5-4.5) H 12/16/22 06:15 Magnesium 1.8 mg/dL (1.7-2.3) 12/18/22 04:42 Iron 14 ug/dL (37-145) L 12/15/22 18:46 Iron Cancelled 12/15/22 18:46 TIBC 449 mcg/dl 12/15/22 18:46 TIBC Cancelled 12/15/22 18:46 % Saturation 3.1 % (20-50) L 12/15/22 18:46 % Saturation Cancelled 12/15/22 18:46 Unsat Iron Binding 435 ug/dL (112-347) H 12/15/22 18:46 Unsat Iron Binding Cancelled 12/15/22 18:46 Ferritin 8 ng/mL (15-150) L 12/15/22 18:46 Total Bilirubin 0.4 mg/dL (0.15-1.2) 12/15/22 18:46 AST 14 U/L (0-32) 12/15/22 18:46 ALT 10 U/L (0-33) 12/15/22 18:46 Alkaline Phosphatase 43 U/L (35-105) 12/15/22 18:46 Lactate Dehydrogenase 180 U/L (135-214) 12/15/22 18:46 Troponin T Baseline 42 ng/L (0-10) H 12/16/22 06:15 Troponin T 120 Minute 47.08 ng/L (0-10) H 12/16/22 08:35 Delta Troponin T 5.08 ABS# (0-10) 12/16/22 08:35 Troponin T Hi Sens 6Hr 40.21 ng/L (0-10) H 12/16/22 12:32 Troponin T Hi Sens 6Hr Delta -1.79 ng/L (0-12) L 12/16/22 12:32 C-Reactive Protein 3.0 mg/L (0.0-4.9) 12/16/22 06:15 NT-Pro-B Natriuret Pep 1172 pg/mL (0-450) H 12/18/22 04:42 Total Protein 6.4 g/dL (6.6-8.7) L 12/15/22 18:46 Albumin 3.3 g/dL (3.5-5.2) L 12/15/22 18:46 Globulin 3.1 g/dL (1.3-4.6) 12/15/22 18:46 Vitamin B12 427 pg/mL (232-1245) 12/15/22 18:46 Procalcitonin 0.07 ng/mL (0-0.5) 12/16/22 06:15 TSH 1.58 uIU/mL (0.27-4.20) 12/15/22 18:46 Urine Color Colorless (Yellow) 12/16/22 09:44 Urine Appearance Clear (CLEAR) 12/16/22 09:44 Urine pH 7 (5-7) 12/16/22 09:44 Ur Specific [place] 1.000 (1.005-1.030) L 12/16/22 09:44 Urine Protein Neg (Negative) 12/16/22 09:44 Urine Glucose (UA) Norm (Normal) 12/16/22 09:44 Urine Ketones Negative (Negative) 12/16/22 09:44 Urine Blood Neg (Negative) 12/16/22 09:44 Urine Nitrate Negative (Negative) 12/16/22 09:44 Urine Bilirubin Neg (Negative) 12/16/22 09:44 Urine Urobilinogen Norm mg/dL (Negative) 12/16/22 09:44 Ur Leukocyte Esterase Negative (Negative) 12/16/22 09:44 Blood Type B Positive 12/15/22 19:52 Rho(D) Type Positive 12/15/22 19:52 Antibody Screen Negative 12/15/22 19:52 Crossmatch See Detail 12/15/22 19:52 Vitals Last Vital Signs Temp 98.5 F 12/18/22 11:38 Pulse 75 12/18/22 11:38 Resp 14 12/18/22 11:38 BP 98/65 12/18/22 11:38 Pulse Ox 95 12/18/22 12:02 O2 Del Method Nasal Cannula 12/18/22 11:38 O2 Flow Rate 2 12/18/22 08:00 FiO2 30 12/17/22 14:00 Discharge Plan Discharge Patient Disposition: Home Condition: Stable Prescriptions: New amoxicillin-pot clavulanate 875-125 mg tablet 1 tab PO BID 5 Days Qty: 10 0RF sucralfate 1 gram Tablet 1 g PO Q12H 30 Days Qty: 60 0RF Venofer 200 mg iron/10 mL solution 200 mg IV Q48H 2 Days Qty: 10 0RF Rx Instructions: administer over 2-5 mins pantoprazole [Protonix] 40 mg tablet,delayed release (DR/EC) 40 mg PO BID 30 Days Qty: 60 0RF furosemide [Lasix] 20 mg tablet 20 mg PO DAILY 3 Days Qty: 3 0RF Continued multivitamin 1 tab PO DAILY acetaminophen [Tylenol Extra Strength] 500 mg tablet 500 mg PO Q6H PRN (Reason: Pain) Incruse Ellipta 62.5 mcg/actuation blister with device 1 inh inhalation Q24H Qty: 30 2RF tramadol 50 mg tablet 50 mg PO BID PRN (Reason: pain) Qty: 60 2RF rosuvastatin 40 mg tablet 40 mg PO DAILY Qty: 30 2RF Xarelto 2.5 mg tablet 2.5 mg PO BID Qty: 60 2RF potassium chloride 10 mEq capsule, extended release 10 meq PO DAILY Qty: 30 2RF levothyroxine 88 mcg tablet 88 mcg PO DAILY Qty: 30 2RF Rx Instructions: use 7 days week gabapentin 800 mg tablet 800 mg PO BID Qty: 60 2RF ergocalciferol (vitamin D2) 1,250 mcg (50,000 unit) capsule 50,000 unit PO .weekly Qty: 4 2RF Rx Instructions: takes on mondays duloxetine 60 mg capsule,delayed release(DR/EC) 60 mg PO BID Qty: 60 2RF albuterol sulfate [Ventolin HFA] 90 mcg/actuation HFA aerosol inhaler 2 inh inhalation Q4H PRN (Reason: shortness of breath or wheezing) Qty: 18 2RF Held chlorthalidone 25 mg tablet 25 mg PO DAILY Qty: 30 2RF Hold Instructions: Resume on 12/26/22. hold until you see primary care Discharge Orders: Discharge Order (Routine); Ordered 12/18/22 Ordered By: Jesus Lara Referrals: Anurag Byrne DO [Physician] - 2 weeks Jennifer Bowles MD [Physician] - 2 weeks Fredis Fernandez MD [Hospitalist] - 1-3 days Discharge Diet: Cardiac Discharge Activity: Resume usual activity Patient Instructions: GI Bleeding, GI Discharge Instructions, Opioid Safety Activity Restrictions/Additional Instructions: - Please see your primary care provider in the next 24 hours, to recheck your hemoglobin, hemoglobin at discharge 8.9 -If you develop lightheadedness or dizziness or bloody black stools please go to emergency room -Please take Lasix as prescribed -If you have worsening shortness of breath please go to emergency room -Please follow-up for iron infusions Discharge Attestations Time Spent in Discharge Care*: greater than 30 min Time Spent in Smoking Cessation: 3 to 10 minutes Quality Metrics Clinical Quality Measures [ No reported AMI, CVA or VTE this stay] Coding Level of Care Code 19216 Total time (in minutes) for Discharge: 50 Diagnoses Chronic anemia D64.9 Heart block AV second degree I44.1 Dietary iron deficiency E61.1 Generalized muscle ache M79.10 Enrolled in chronic care management Z78.9 Pacemaker Z95.0 Essential hypertension I10 COPD (chronic obstructive pulmonary disease) with emphysema J43.9 Adult onset hypothyroidism E03.8 Microcytic anemia D50.9 Severe anemia D64.9 Aspiration pneumonia J69.0 Iron deficiency anemia D50.9 CHF exacerbation I50.9 NSTEMI (non-ST elevated myocardial infarction) I21.4 Duodenal ulcer K26.9 GI (gastrointestinal bleed) K92.2 Food impaction of esophagus T18.128A Pulmonary edema J81.1
[2022-12-18 14:27] LABS: Hematocrit 32.2 % (37.0-47.0)
--- NOTE | 2022-12-18 17:41 | PC.NURSE ---
Discharge Note Patient discharged to [home] via [POV] accompanied by [family]. Discharge instructions reviewed with patient and/or appliance service representative. Mobile pharmacy medications and/or prescriptions provided. Belongings/home medications returned.
== END 2022-12-18 17:15 | disposition home or self-care (01) | DRG 377 ==
LOC: ER 19:42 → MEDSURG 20:48 → ICU 12-16 05:05 → CSU 12-17 14:02
PROVIDERS: Surgery; Admitting Provider Internal Medicine; Emergency Provider Emergency Medicine; PCP Nurse Practitioner; Visit Provider Family Medicine
PROC: 0DJ08ZZ Inspection of Upper Intestinal Tract, Via Natural or Artificial Opening Endoscopic (ICD-10-PCS; CPT 43235; principal; 2022-12-16 13:40)
DX: K92.2 Gastrointestinal hemorrhage, unspecified (principal); I21.4 Non-ST elevation (NSTEMI) myocardial infarction; J69.0 Pneumonitis due to inhalation of food and vomit; K29.80 Duodenitis without bleeding; T39.395A Adverse effect of other nonsteroidal anti-inflammatory drugs [NSAID], initial encounter; T45.515A Adverse effect of anticoagulants, initial encounter; Z85.00 Personal history of malignant neoplasm of unspecified digestive organ; I48.91 Unspecified atrial fibrillation; F17.210 Nicotine dependence, cigarettes, uncomplicated; T18.128A Food in esophagus causing other injury, initial encounter; I11.0 Hypertensive heart disease with heart failure; I50.9 Heart failure, unspecified; Z79.891 Long term (current) use of opiate analgesic; Z79.01 Long term (current) use of anticoagulants; Z79.51 Long term (current) use of inhaled steroids; Z95.0 Presence of cardiac pacemaker; K52.9 Noninfective gastroenteritis and colitis, unspecified; E87.6 Hypokalemia; Z96.641 Presence of right artificial hip joint; Z90.49 Acquired absence of other specified parts of digestive tract; Z98.84 Bariatric surgery status; E78.5 Hyperlipidemia, unspecified; F32.A Depression, unspecified; F41.9 Anxiety disorder, unspecified; E89.0 Postprocedural hypothyroidism; J43.9 Emphysema, unspecified; D50.0 Iron deficiency anemia secondary to blood loss (chronic)
CPT/HCPCS: 36415; 36430; 43239; 43247; 51702; 71045; 80048; 80053; 80061; 81003; 82274; 82306; 82607; 82728; 83540; 83550; 83615; 83735; 83880; 84100; 84145; 84443; 84484; 85014; 85018; 85025; 85045; 85378; 86140; 86850; 86900; 86920; 87040; 88305; 92610; 93005; 93306; 94640; 94660; 94760; 96376; 97110; 97116; 97161; 99285; C9113; J1756; J1940; J2543; J2704; J3480; J3490; P9016

== ENCOUNTER 2022-12-20 14:38 | Oncology outpatient (recurring) (ONCR) | payer MEDICARE, MEDICAID, SELFPAY ==
[2022-12-20 16:13] LABS: Basophils # 0.1 10^3/uL (0.0-0.1); Eosinophils # 0.3 10^3/uL (0.0-0.8); Eosinophils % 3.4 %; Hematocrit 34.4 % (37.0-47.0); Hemoglobin 9.7 g/dL (11.5-15.3); Lymphocytes # 1.3 10^3/uL (0.8-4.8); Lymphocytes % 15.6 %; Mean Corpuscular HGB Conc 28.2 g/dL (30.0-36.0); Mean Corpuscular Volume 85.1 fl (81-99); Mean Platelet Volume 11.2 fL (7.4-10.4); Monocytes # 0.7 10^3/uL (0.2-0.9); Neutrophils # 5.65 10^3/uL (1.8-7.7); Neutrophils % 70.3 %; Nucleated Red Blood Cells % 0 %; Platelet Count 302 10^3/cmm (130-400); Red Blood Count 4.04 10^6/uL (4.1-5.3); Red Cell Distribution Width 23.9 % (12.1-15.1)
[2022-12-20 16:41] LABS: Alanine Aminotransferase 18 U/L (0-33); Albumin Level 3.8 g/dL (3.5-5.2); Alkaline Phosphatase 44 U/L (35-105); Anion Gap 14.8 (5-19); Aspartate Amino Transferase 25 U/L (0-32); Blood Urea Nitrogen 14 mg/dL (8-23); Calcium 8.9 mg/dL (8.5-10.5); Carbon Dioxide 31 mmol/L (22-29); Chloride 97 mmol/L (98-107); Ferritin 258 ng/mL (15-150); Glucose 95 mg/dL (65-115); Iron 46 ug/dL (37-145); Osmolality Calculated 290 mOsm/kg (285-295); Percent Saturation 11.3 % (20-50); Sodium 140 mmol/L (136-145); Total Bilirubin 0.4 mg/dL (0.15-1.2); Total Iron Binding Capacity 404 mcg/dl; Total Protein 6.8 g/dL (6.6-8.7); Unsaturated Iron Binding 358 ug/dL (112-347)
[2022-12-20 17:09] LABS: Potassium 2.8 mmol/L (3.5-5.1)
[2022-12-21 08:42] LABS: Magnesium 1.9 mg/dL (1.7-2.3)
== END 2023-01-05 23:59 | disposition home or self-care (01) ==
PROVIDERS: PCP Nurse Practitioner; Visit Provider Internal Medicine Medical Oncology
DX: D50.9 Iron deficiency anemia, unspecified (principal); Z79.899 Other long term (current) drug therapy
CPT/HCPCS: 80053; 82728; 83540; 83550; 83735; 85025; 99204

== ENCOUNTER → 2022-12-26 10:59 | Outpatient (BNVA) | payer MEDICARE, MEDICAID, SELFPAY | PROVIDERS: PCP Nurse Practitioner; Visit Provider Internal Medicine Medical Oncology | DX: D64.9 Anemia, unspecified (principal); D50.9 Iron deficiency anemia, unspecified | CPT/HCPCS: 80048; 85025 ==

== ENCOUNTER → 2023-01-02 11:30 | Outpatient (BNVA) | payer MEDICARE, MEDICAID, SELFPAY | PROVIDERS: PCP Nurse Practitioner; Visit Provider Internal Medicine Medical Oncology | DX: D64.9 Anemia, unspecified (principal) | CPT/HCPCS: 85025 ==

== ENCOUNTER → 2023-01-10 10:48 | Outpatient (BNVA) | payer MEDICARE, MEDICAID, SELFPAY | PROVIDERS: PCP Nurse Practitioner; Visit Provider Internal Medicine Medical Oncology | DX: D64.9 Anemia, unspecified (principal); D50.9 Iron deficiency anemia, unspecified | CPT/HCPCS: 85025 ==

== ENCOUNTER → 2023-01-11 12:44 | Outpatient (BNVA) | payer MEDICARE, MEDICAID, SELFPAY | PROVIDERS: PCP Nurse Practitioner; Visit Provider Internal Medicine Cardiovascular Disease | DX: D50.9 Iron deficiency anemia, unspecified (principal); I10 Essential (primary) hypertension; Z96.642 Presence of left artificial hip joint; I44.1 Atrioventricular block, second degree; M54.40 Lumbago with sciatica, unspecified side; G89.29 Other chronic pain; Z95.0 Presence of cardiac pacemaker; E78.5 Hyperlipidemia, unspecified; Z72.0 Tobacco use; J43.9 Emphysema, unspecified | CPT/HCPCS: 99214 ==

== ENCOUNTER → 2023-01-16 10:33 | Outpatient (BNVA) | payer MEDICARE, MEDICAID, SELFPAY | PROVIDERS: PCP Nurse Practitioner; Visit Provider Internal Medicine Medical Oncology | DX: D64.9 Anemia, unspecified (principal); D50.9 Iron deficiency anemia, unspecified | CPT/HCPCS: 80053; 82728; 83550; 85025 ==

== ENCOUNTER 2023-01-30 11:43 | Emergency (ER) | payer MEDICARE, MEDICAID, SELFPAY ==
[2023-01-30] VITALS (11 sets, daily range): BP systolic 115–143; BP diastolic 56–98; PULSE 69–92; RESP 25–26; TEMP 36.7; O2SAT 82–95; BMI 27.4
--- NOTE | 2023-01-30 11:50 | XRR_ITS ---
PROCEDURE INFORMATION: Exam: XR Chest Exam date and time: 01/30/2023 12:17 PM Age: 77 years old Clinical indication: Shortness of breath; Prior surgery; Surgery date: 6+ months; Surgery type: Pacer.No history of trauma or recent surgery is provided. TECHNIQUE: Imaging protocol: Radiologic exam of the chest. 1image(s) are provided. Views: 1 view. COMPARISON: 1. CR (CHEST, ) 12/17/2022 11:28 AM 2. CR (CHEST, ) 12/16/2022 4:59 AM FINDINGS: Tubes, catheters and devices: The cardiac leads appears similar overall. Lungs: There is some patchy ground-glass attenuation at the lung bases right more so than left. There is some mild chronic air trapping type appearance overall. Pleural spaces: There is costophrenic angle blunting overall bilaterally right slightly more so than left. No pneumothorax is appreciated. Heart/Mediastinum: The cardiomediastinal silhouette is upper normal in size.This can be seen with central averaging as well as laz enlargement. No cardiac decompensation is appreciated. Diaphragm: The hemidiaphragms are relatively symmetric. Bones/joints: Osseous alignment is maintained.No interval displaced fracture or dislocation is appreciated.There is slightly decreased bone mineralization overall. There is some chronic advanced degeneration about the shoulders suggestive of chronic rotator cuff disease. Soft tissues: No radiopaque foreign body or subcutaneous emphysema is appreciated. Intraperitoneal space: There are surgical changes of the upper abdomen demonstrated. Other findings: No other significant interval changes are appreciated. XR/XR chest 1V portable [id number] IMPRESSION: There is some patchy inflammatory appearance at the lung bases right more so than left. Overall no lobar type consolidation or cardiac decompensation is currently appreciated.
[2023-01-30 12:02] LABS: Basophils # 0.1 10^3/uL (0.0-0.1); Basophils % 0.5 %; Eosinophils # 0.2 10^3/uL (0.0-0.8); Eosinophils % 1.7 %; Hematocrit 38.1 % (36-47); Lymphocytes # 1.4 10^3/uL (0.8-4.8); Lymphocytes % 15.2 %; Mean Corpuscular HGB Conc 28.9 g/dL (30-55); Mean Corpuscular Hemoglobin 27.8 pg (27-33); Mean Corpuscular Volume 96.2 fl (85-98); Mean Platelet Volume 10.8 fL (7.4-10.4); Monocytes # 0.5 10^3/uL (0.2-0.9); Monocytes % 5.5 %; Neutrophils # 7.26 10^3/uL (1.8-7.7); Neutrophils % 76.8 %; Nucleated Red Blood Cells % 0 %; Platelet Count 247 10^3/cmm (157-399); Red Blood Count 3.96 10^6/uL (3.85-5.65); White Blood Count 9.46 10^3/uL (3.29-11.43)
--- NOTE | 2023-01-30 12:03 | ECG_ITS ---
[facility] Test Date: 2023-01-30 Pat Name: Sobia Mercer Department: Room: Gender: Female Teaching Supervisor: : 1945 Requested By: Shay Fernandes Order Number: [id number] Luis Alberto MD: Amadeo Pillai M.D. Measurements Intervals [place] Rate: 80 P: 60 KS: 184 QRS: -59 QRSD: 153 T: 107 QT: 454 QTc: 524 Interpretive Statements ELECTRONIC [employer]ENTRICULAR PACEMAKER Compared to ECG 12/16/2022 15:49:29 Atrial-paced complex(es) or rhythm no longer present Electronically Signed On 01-30-2023 16:15:28 CDT by Amadeo Pillai M.D. [email or web address]
--- NOTE | 2023-01-30 12:06 | PC.PHAR ---
pt states she takes care of her own medications-pt states her xarelto 2.5mg bid was put on hold about 5 weeks ago ext shows last filled 12/30/22 30d/s-pt states she ran out of her protonix 40mg bid and carafate 1g q12h on 01/29/23 both rxs filled 12/19/22 30d/s-notes are made in the pharmacy comments
[2023-01-30 12:15] LABS: INR 0.93 (0.8-1.2)
--- NOTE | 2023-01-30 12:31 | ED_ITS ---
HPI - SOB/Dyspnea General: Chief Complaint: Shortness of Breath/Dyspnea Stated Complaint: sob Time Seen by Provider: 01/30/23 11:47 History of Present Illness: HPI Narrative: Patient presents to the ER with complaints of shortness of breath worsening over the last 5 weeks. Patient was hospitalized 1 month ago for low hemoglobin and required transfusion and iron supplementation and she said it feels similar to that episode. Patient says worse with any activity patient does not wear oxygen at home. Upon arrival to the ER her O2 sat was 82% on room air. She is placed on 6 L per nasal cannula and her saturation jumped up to approximately 93%. Patient was given 1 albuterol and 1 DuoNeb on route by the ambulance as well as 125 mg Solu-Medrol and 4 mg Zofran. Review of Systems General: Reports: 10 or more systems reviewed and unremarkable except in HPI and below PFSH ED PFSH: Medical History Adult onset hypothyroidism Anxiety and depression Dyslipidemia Enrolled in chronic care management Essential hypertension Heart block AV second degree History of pacemaker Pacemaker Tobacco abuse Vitamin D deficiency Surgical History History of cholecystectomy History of colonoscopy History of gastric bypass History of laparoscopic appendectomy History of partial surgical removal of colon History of right hip replacement History of thyroidectomy Family History Other Cancer Diabetes Hypertension Social History Smoking and tobacco status: former smoker Quit status (tobacco): has quit using tobacco Year quit tobacco: 12/08/2022 Former quit date comment: 50 years Second hand smoke exposure: Yes Smoking risk assessment/counseling performed?: No Alcohol intake: current Alcohol intake frequency: holidays/special occasions only Alcohol type: beer and hard liquor Desire information about alcohol rehabilitation?: No Counseling given: No Substance/Drug Use: never Desire information about substance/drug rehabilitation?: No Counseling given: No Adopted: No Caregiver/support person: No Lives independently: Yes Household members: none Housing: House Marital status: Number of children: 2 Current occupational status: retired Do you think of yourself as: Straight/Heterosexual Current gender identity: Female Physical Exam Const: COMMON NORMALS: no acute distress, average body habitus, patient orient ed x3, no limitations, healthy appearing, alert and well nourished HENMT: COMMON NORMALS: normocephalic, atraumatic, hearing grossly normal bilaterally, external ears normal, Normal external nose present and moist oral mucous membranes HEAD & SCALP: normocephalic and atraumatic NOSE: Normal external nose present EXTERNAL EAR: Yes external ears normal Eye: COMMON NORMALS: Equal, round and reactive pupils present, EOMs intact bilaterally, conjunctivae normal and no scleral icterus CONJUNCTIVA: Yes conjunctivae normal PUPIL: Yes Equal, round and reactive pupils present Neck/C-Spine: COMMON NORMALS: full ROM, no lymphadenopathy, supple, no meningeal signs, no JVD and Thyroid normal THYROID: Thyroid normal Chest: COMMONS NORMALS: normal inspection of the chest and normal palpation of entire chest wall Resp: COMMON NORMALS: normal respiratory effort, No retractions, No use of accessory muscles and clear to auscultation bilaterally AUSCULTATION: clear to auscultation bilaterally Cardio: COMMON NORMALS: no JVD, regular rate, regular rhythm, S1 normal heart sound present, S2 normal heart sound present, No gallops present (Cardio), No clicks present (Cardio), No murmurs present (Cardio) and No rub (Cardio) RATE: regular rate RHYTHM: regular rhythm HEART SOUNDS: S1 normal heart sound present and S2 normal heart sound present GI: COMMON NORMALS: Normal to inspection, nondistended, normoactive bowel sounds present, Soft to palpation, non-tender, No hepatosplenomegaly present and no masses PALPATION: Yes Soft to palpation and Yes No hepatosplenomegaly present : COMMON NORMALS: Yes no CVA tenderness BLADDER/KIDNEY EXAM: Yes no CVA tenderness Back/Pelvis: COMMON NORMALS: no CVA tenderness Neuro: COMMON NORMALS: patient oriented x3 SENSORIUM/ORIENTATION: Yes alert MENINGEAL SIGNS: Yes no meningeal signs Course Vital Signs: Vital signs: Vital Signs Temperature 98.1 F 01/30/23 11:45 Pulse Rate 92 01/30/23 18:00 Respiratory Rate 25 H 01/30/23 17:44 Blood Pressure 139/72 01/30/23 18:00 Pulse Oximetry 87 L 01/30/23 18:40 Oxygen Delivery Me thod Nasal Cannula 01/30/23 17:44 Oxygen Flow Rate 3 01/30/23 18:40 MDM - SOB/Dyspnea Medical Decision Making Patient presents to the ER with increasing shortness of breath. Patient usually does wear home O2 but has been very anemic in the past. Patient had a breathing treatment on route. Patient was worked up with a standard fashion chest x-ray does not show any infiltrate. Lab work was stable. Patient required 5 L of oxygen begin with that we titrated her down to 3 L. Patient failed her home walking oxygen test by RT. Patient will be discharged home on 3 L of oxygen. Differential Diagnosis Unlikely acute exacerbation of chronic obstructive airways disease, congestive heart failure, community acquired pneumonia, asthma with exacerbation or pulmonary embolism Medical Records I reviewed the patient's medical records. Lab Data I reviewed the patient's lab results. 01/30/23 11:57 01/30/23 12:40 Labs/Radiology: Radiology Impressions Chest X-Ray 01/30/23 11:50 IMPRESSION: There is some patchy inflammatory appearance at the lung bases right more so than left. Overall no lobar type consolidation or cardiac decompensation is currently appreciated. Laboratory Results WBC 9.46 10^3/uL (3.29-11.43) 01/30/23 11:57 RBC 3.96 10^6/uL (3.85-5.65) 01/30/23 11:57 Hgb 11.00 g/dL (11.27-16.99) L 01/30/23 11:57 Hct 38.1 % (36-47) 01/30/23 11:57 MCV 96.2 fl (85-98) 01/30/23 11:57 MCH 27.8 pg (27-33) 01/30/23 11:57 MCHC 28.9 g/dL (30-55) L 01/30/23 11:57 RDW 22.0 % (12.1-15.1) H 01/30/23 11:57 Plt Count 247 10^3/cmm (157-399) 01/30/23 11:57 MPV 10.8 fL (7.4-10.4) H 01/30/23 11:57 Neut % (Auto) 76.8 % 01/30/23 11:57 Lymph % (Auto) 15.2 % 01/30/23 11:57 [place] % (Auto) 5.5 % 01/30/23 11:57 Eos % (Auto) 1.7 % 01/30/23 11:57 Baso % (Auto) 0.5 % 01/30/23 11:57 Neut # (Auto) 7.26 10^3/uL (1.8-7.7) 01/30/23 11:57 Lymph # (Auto) 1.4 10^3/uL (0.8-4.8) 01/30/23 11:57 [place] # (Auto) 0.5 10^3/uL (0.2-0.9) 01/30/23 11:57 Eos # (Auto) 0.2 10^3/uL (0.0-0.8) 01/30/23 11:57 Baso # (Auto) 0.1 10^3/uL (0.0-0.1) 01/30/23 11:57 Nucleated RBC % (auto) 0 % 01/30/23 11:57 Nucleated RBCs # 0.0 /100WBC 01/30/23 11:57 PT 12.70 SECONDS (12.1-14.9) 01/30/23 11:57 INR 0.93 (0.8-1.2) 01/30/23 11:57 D-Dimer 1.92 ug/mLFEU (0-0.59) H 01/30/23 12:40 Specimen Type Arterial 01/30/23 12:36 Sample Site Radial, right 01/30/23 12:36 ABG pH 7.37 (7.35-7.45) 01/30/23 12:36 ABG pCO2 43.3 mmHg (35-45) 01/30/23 12:36 ABG pO2 74.8 mmHg (80.0-100.0) L 01/30/23 12:36 ABG HCO3 24.7 mmol/L (22-26) 01/30/23 12:36 ABG O2 Saturation 93.7 01/30/23 12:36 ABG Base Excess -0.7 mmol/L (-2.0-2.0) 01/30/23 12:36 Alexx Test Pos 01/30/23 12:36 A-a O2 Gradient 2.8 mmHg (5-10) L 01/30/23 12:36 Hematocrit 32.4 % (37-47) L 01/30/23 12:36 Hgb O2 Saturation 91.7 % (95-100) L 01/30/23 12:36 Carboxyhemoglobin 1.5 %THgb (0.4-20.1) 01/30/23 12:36 Methemoglobin 0.6 % (0.4-1.5) 01/30/23 12:36 Total Hemoglobin 10.6 g/dL (12-16) L 01/30/23 12:36 Sodium 144.0 mmol/L (131-143) H 01/30/23 12:36 Potassium 3.8 mmol/L (3.5-5.0) 01/30/23 12:36 Glucose 121.0 mg/dL (70-115) H 01/30/23 12:36 Ionized Calcium 1.2 mmol/L (1.1-1.4) 01/30/23 12:36 O2 Delivery Device Nc 01/30/23 12:36 O2 Liters/Min 5.0 % 01/30/23 12:36 Cloth Edge Singer ID [place] 01/30/23 12:36 Sodium 153 mmol/L (136-145) H 01/30/23 12:40 Potassium 4.3 mmol/L (3.5-5.1) 01/30/23 12:40 Chloride 116 mmol/L (98-107) H 01/30/23 12:40 Carbon Dioxide 26 mmol/L (22-29) 01/30/23 12:40 Anion Gap 15.3 (5-19) 01/30/23 12:40 BUN 18 mg/dL (8-23) 01/30/23 12:40 Creatinine 0.7 mg/dL (0.5-0.9) 01/30/23 12:40 GFR Calculation Not Reportable 01/30/23 12:40 Glucose 120 mg/dL (65-115) H 01/30/23 12:40 Calculated Osmolality 319 mOsm/kg (285-295) H 01/30/23 12:40 Calcium 8.6 mg/dL (8.5-10.5) 01/30/23 12:40 Phosphorus 4.8 mg/dL (2.5-4.5) H 01/30/23 12:40 Magnesium 2.2 mg/dL (1.7-2.3) 01/30/23 12:40 Total Bilirubin 0.8 mg/dL (0.15-1.2) 01/30/23 12:40 AST 20 U/L (0-32) 01/30/23 12:40 ALT 16 U/L (0-33) 01/30/23 12:40 Alkaline Phosphatase 37 U/L (35-105) 01/30/23 12:40 Troponin T Gen 5 ng/L 13 ng/L (0-10) H 01/30/23 16:30 NT-Pro-B Natriuret Pep 1887 pg/mL (0-450) H 01/30/23 12:40 Total Protein 6.2 g/dL (6.6-8.7) L 01/30/23 12:40 Albumin 3.7 g/dL (3.5-5.2) 01/30/23 12:40 Globulin 2.5 g/dL (1.3-4.6) 01/30/23 12:40 Urine Color Yellow (Yellow) 01/30/23 17:50 Urine Appearance Sl hazy (CLEAR) A 01/30/23 17:50 Urine pH 5 (5-7) 01/30/23 17:50 Ur Specific [place] 1.005 (1.005-1.030) 01/30/23 17:50 Urine Protein Neg (Negative) 01/30/23 17:50 Urine Glucose (UA) Norm (Normal) 01/30/23 17:50 Urine Ketones Negative (Negative) 01/30/23 17:50 Urine Blood Neg (Negative) 01/30/23 17:50 Urine Nitrate Positive (Negative) H 01/30/23 17:50 Urine Bilirubin Neg (Negative) 01/30/23 17:50 Urine Urobilinogen 4 mg/dL (Negative) H 01/30/23 17:50 Ur Leukocyte Esterase Negative (Negative) 01/30/23 17:50 Urine RBC 0-4 /hpf (0-2) H 01/30/23 17:50 Urine WBC 0-4 /hpf (0-5) H 01/30/23 17:50 Ur Squamous Epith Cells 0-4 /hpf (0-5) H 01/30/23 17:50 Amorphous Sediment Not Reportable 01/30/23 17:50 Urine Bacteria 2+ /hpf (NONE) H 01/30/23 17:50 All radiology interpretation(s) finalized by discharge EKG Data EKG 1: I personally reviewed and interpreted this EKG as follows: EKG Interpretation Date: 01/30/23 EKG interpretation time: 12:03 Prior EKG tracings: not available for review Interpretation: EKG showed ventricular rate 80 bpm, MT interval 184, QRS duration 153, QTc of 489, electronic ventricular pacemaker Discharge Plan Discharge Patient Disposition: Home 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 Condition: Stable Prescriptions: No Action acetaminophen [Tylenol Extra Strength] 500 mg tablet 1,000 mg PO Q6H PRN (Reason: Pain) Incruse Ellipta 62.5 mcg/actuation blister with device 1 inh inhalation Q24H Qty: 30 2RF tramadol 50 mg tablet 50 mg PO BID PRN (Reason: pain) Qty: 60 2RF rosuvastatin 40 mg tablet 40 mg PO DAILY Qty: 30 2RF Xarelto 2.5 mg tablet 2.5 mg PO BID Qty: 60 2RF Hold Instructions: Doctor's Order Rx Instructions: (pt states med on hold for about 5 weeks as of 01/30/23) gabapentin 800 mg tablet 800 mg PO BID Qty: 60 2RF duloxetine 60 mg capsule,delayed release(DR/EC) 60 mg PO BID Qty: 60 2RF albuterol sulfate [Ventolin HFA] 90 mcg/actuation HFA aerosol inhaler 2 inh inhalation Q4H PRN (Reason: shortness of breath or wheezing) Qty: 18 2RF potassium chloride 10 mEq capsule, extended release 10 meq PO BID Rx Instructions: dose increase multivitamin Tablet 1 tab PO DAILY sucralfate 1 gram tablet 1 g PO Q12H pantoprazole 40 mg tablet,delayed release (DR/EC) 40 mg PO BID levothyroxine 88 mcg tablet 88 mcg PO QAM Rx Instructions: use 7 days week ergocalciferol (vitamin D2) 1,250 mcg (50,000 unit) capsule 50,000 unit PO Q7D Rx Instructions: takes on mondays Discharge Orders: Discharge ED (Routine); Ordered 01/30/23 Ordered By: Shay Fernandes Other Ambulatory Orders: DME: Oxygen (Order) Location: None Selected Ordered By: Shay Fernandes Referrals: Talib Dahl [email or web address] [Primary Care Provider] - 1 week Patient Instructions: COPD (Chronic Obstructive Pulmonary Disease) (ED) Activity Restrictions/Additional Instructions: Please wear home O2 at 3 L per nasal cannula at all times. Please follow-up with your family practice physician within the next week for further evaluation and treatment. He may benefit from a referral to a receivable executive. Coding Level of Care Code ED Garment Finisher for Melissa Granda
[2023-01-30 12:47] LABS: ABG PCO2 43.3 mmHg (35-45); ABG PH Result 7.37 (7.35-7.45); Alveolar-Arterial Oxygen Gradi 2.8 mmHg (5-10); Arterial Blood Gas Hematocrit 32.4 % (37-47); Base Excess ABG -0.7 mmol/L (-2.0-2.0); Blood Gas Allen Test Pos; Blood Gas Operator Identificat WALCI; Blood Gas Sample Site Radial, right; Blood Gas Sample Type Arterial; Carboxyhemoglobin 1.5 %THgb (0.4-20.1); HCO3 ABG 24.7 mmol/L (22-26); HGB O2 Sat 91.7 % (95-100); Ionized Calcium Level - ABG 1.2 mmol/L (1.1-1.4); Methemoglobin 0.6 % (0.4-1.5); Oxygen Device NC; Oxygen Saturation ABG 93.7; PO2 ABG 74.8 mmHg (80.0-100.0); Potassium Level - ABG 3.8 mmol/L (3.5-5.0); Total Hemoglobin 10.6 g/dL (12-16)
[2023-01-30 13:09] LABS: D Dimer 1.92 ug/mLFEU (0-0.59)
[2023-01-30 13:14] LABS: Troponin T (5th) Once 17 ng/L (0-10)
--- NOTE | 2023-01-30 13:18 | CT_ITS ---
WS: [id number] CT CHEST ANGIOGRAPHY WITH REFORMATS HISTORY: dyspnea, tachypnea, elevated d dimer TECHNIQUE: Contiguous axial images are obtained through the chest during arterial injection of intrav enous contrast. Images are reconstructed to evaluate the pulmonary arteries. MIP imaging also reviewe d. All CT scans at [facility] use at least one of these dose optimization techniques: automat ed exposure control; mA and/or kV adjustment per patient size (includes targeted exams where dose is matched to clinical indication); or iterative reconstruction. CONTRAST: Omnipaque 350; 100 mL IV. DLP: 403.46 mGy.cm COMPARISON: None available. Good opacification of the pulmonary arteries. No filling defects in the pulmonary arteries. There is mild enlargement of the pulmonary artery. Mild atherosclerosis aorta. Mild ectasia of the aorta. There is diffuse mild pulmonary congestion with small layering bilateral pleural effusions. LEFT subc lavian pacer. No mediastinal or hilar adenopathy. Heart is moderately enlarged. Greatest involving th e LEFT ventricle and atrium. No pericardial effusion. Mild increase in thoracic kyphosis. Degenerative disc disease. IMPRESSION: 1. No pulmonary embolism. 2. Mild pulmonary hypertension. 3. Mild pulmonary venous congestion and small bilateral pleural effusions. 4. Moderate cardiomegaly.
[2023-01-30 13:24] LABS: Alanine Aminotransferase 16 U/L (0-33); Albumin Level 3.7 g/dL (3.5-5.2); Alkaline Phosphatase 37 U/L (35-105); Anion Gap 15.3 (5-19); Aspartate Amino Transferase 20 U/L (0-32); Blood Urea Nitrogen 18 mg/dL (8-23); Calcium 8.6 mg/dL (8.5-10.5); Carbon Dioxide 26 mmol/L (22-29); Chloride 116 mmol/L (98-107); Creatinine Clr Calc Pharmacy 57.5012; Globulin 2.5 g/dL (1.3-4.6); Glucose 120 mg/dL (65-115); Magnesium 2.2 mg/dL (1.7-2.3); NT Pro B Type Natriuretic Pept 1887 pg/mL (0-450); Osmolality Calculated 319 mOsm/kg (285-295); Potassium 4.3 mmol/L (3.5-5.1); Sodium 153 mmol/L (136-145); Total Bilirubin 0.8 mg/dL (0.15-1.2); Total Protein 6.2 g/dL (6.6-8.7)
[2023-01-30] MEDS: iohexol 350 mg/mL 500 mL Btl (per mL) IV (13:45)
[2023-01-30 13:55] LABS: Phosphorus 4.8 mg/dL (2.5-4.5)
[2023-01-30 17:08] LABS: Troponin T (5th) Once 13 ng/L (0-10)
[2023-01-30] MEDS: acetaminophen 500 mg Tablet 1000 MG PO (17:40)
[2023-01-30 18:08] LABS: Add Urine Microscopic? YES; Bilirubin Urine Neg (Negative); Blood Urine Neg (Negative); Glucose Urine UA Norm (Normal); Ketones Urine Negative (Negative); Leukocyte Esterase Urine Negative (Negative); Nitrate Urine Positive (Negative); Protein Urine Neg (Negative); RBC Urine 0-4 /hpf (0-2); Specific Gravity, Urine 1.005 (1.005-1.030); Urine Appearance SL Hazy (CLEAR); Urine Color Yellow (Yellow); Urobilinogen Urine 4 mg/dL (Negative); pH Urine 5 (5-7)
[2023-01-30 18:11] LABS: Add Urine Culture? Yes; Bacteria Urine 2+ /hpf; Squamous Epithelial Cell Urine 0-4 /hpf (0-5); WBC Urine 0-4 /hpf (0-5)
== END 2023-01-30 19:25 | disposition home or self-care (01) ==
PROVIDERS: Emergency Provider Emergency Medicine; PCP Nurse Practitioner
DX: J43.9 Emphysema, unspecified (principal); Z87.891 Personal history of nicotine dependence; E78.5 Hyperlipidemia, unspecified; I10 Essential (primary) hypertension; Z95.0 Presence of cardiac pacemaker
CPT/HCPCS: 36415; 36600; 71045; 71275; 80051; 80053; 81001; 82330; 82805; 83735; 83880; 84100; 84484; 85025; 85378; 85610; 87077; 87086; 87186; 93005; 99285; Q9967